=== PATIENT | male | born 1940 | race Caucasian/White ===

== ENCOUNTER → 2016-10-08 | Outpatient (CLI) | payer OTHER, MEDICARE ==
[~2016-10-08] MED LIST: ASCO10003 PO; ASPI81TA28 PO; B CO1CAP2 PO; CHOL100010 PO; CRD4 PO; DYZ PO; GLUC250C PO; MAGNTAB4 PO; METO-551 PO; MULT-164 PO; POTA-335 PO; SIMV20TA2 PO; WARF2.5T8 PO; WARF5TAB7 PO
[2016-10-08 12:49] LABS: BASO % 0.1 %; BASO ABS # 0.01 K/uL (0-0.2); COMPLETE YES; EOS % 0.3 %; HEMATOCRIT 39.8 % (42-52); IG% 0.3 %; LYMPH % 16.4 %; LYMPH ABS # 1.48 K/uL (1.2-3.4); MEAN CELL VOLUME 93.9 fL (80-100); MEAN CORPUSCULAR HGB CONC 35.2 g/dl (32-36); MEAN PLATELET VOLUME 11.5 fL (7.4-10.4); MONO % 8.1 %; NEUT % 74.8 %; PLATELET COUNT 178 K/uL (130-400); RED BLOOD COUNT 4.24 M/uL (4.7-6.1); WHITE BLOOD COUNT 9.05 K/uL (4.8-10.8)
[2016-10-08 13:00] LABS: URINE APPEARANCE CLEAR (CLEAR); URINE BILIRUBIN NEG (NEG); URINE COLOR YELLOW; URINE EPITHELIAL CELL AUTO 0-5 /lpf (0-5); URINE NITRITE NEG (NEG); UROBILINOGEN NEG (NEG); ZZUR CULT IF INDIC CLEAN CATCH NO
[2016-10-08 13:01] LABS: MANUAL MICROSCOPIC REQUIRED? NO; REVIEW REQ? NO
[2016-10-08 13:06] LABS: BLOOD UREA NITROGEN 15 mg/dl (7-18); BUN/CREATININE RATIO 13.7 (10-20); CALCIUM 9.2 mg/dl (8.5-10.1); CARBON DIOXIDE 28 mmol/L (21-32); CHLORIDE 103 mmol/L (98-107); CHOLESTEROL 107 mg/dl (0-200); GLUCOSE 111 mg/dl (70-99); POTASSIUM 3.7 mmol/L (3.5-5.1); SODIUM 140 mmol/L (136-145)
[2016-10-08 13:16] LABS: ALB/GLOB RATIO 1.2 (0.9-2); ALKALINE PHOSPHATASE 75 U/L (45-117); ALT/SGPT 32 U/L (12-78); AST/SGOT 28 U/L (15-37); CHOLESTEROL/HDL RATIO 2.3; HDL CHOLESTEROL 46 mg/dl; LDL CHOLESTEROL CALCULATED 40 mg/dl; TRIGLYCERIDES 106 mg/dl (0-150); VERY LOW DENSITY LIPOPROT CALC 21 mg/dl
[2016-10-08 13:32] LABS: ESTIMATED AVERAGE GLUCOSE 105 mg/dl; HA1C FLAG Normal (Normal)
== END | disposition home or self-care (01) ==
LOC: C.LABBFT 07:52
PROVIDERS: ATTEND Internal Medicine
DX: I48.91 Unspecified atrial fibrillation (principal); E78.00 Pure hypercholesterolemia, unspecified; N40.0 Benign prostatic hyperplasia without lower urinary tract symptoms; R73.01 Impaired fasting glucose

== ENCOUNTER → 2016-11-06 | Outpatient (CLI) | payer OTHER, MEDICARE ==
--- NOTE | 2016-11-06 13:33 | DIAGNOSTIC IMAGING REPORT ---
RIGHT WRIST MIN 3 VIEWS ROUTINE CLINICAL HISTORY: RIGHT WRIST PAIN Right trauma. Pain. COMPARISON: None. DISCUSSION: Generalized degenerative change. No well-defined acute bony abnormality. Minimal calcification triangular fibrocartilage. There is no evidence for soft tissue swelling. IMPRESSION: Generalized degenerative change. No acute process. Electronically signed by: Abdi Logan M.D. 11/06/2016 1:31 PM Dictated Date/Time: 11/06/2016 1:30 PM
== END | disposition home or self-care (01) ==
LOC: C.RDSM 13:10
PROVIDERS: ATTEND Family Medicine
DX: M25.531 Pain in right wrist (principal)

== ENCOUNTER → 2017-10-29 | Outpatient (CLI) | payer OTHER, MEDICARE ==
[2017-10-29 15:06] LABS: BASO % 0.4 %; BASO ABS # 0.03 K/uL (0-0.2); EOS % 2.1 %; EOS ABS # 0.14 K/uL (0-0.5); HEMATOCRIT 36.1 % (42-52); HEMOGLOBIN 12.2 g/dL (14.0-18.0); IG# 0.02 K/uL (0.00-0.02); LYMPH ABS # 1.15 K/uL (1.2-3.4); MEAN CORPUSCULAR HEMOGLOBIN 32.1 pg (25-34); MEAN CORPUSCULAR HGB CONC 33.8 g/dl (32-36); MEAN PLATELET VOLUME 10.9 fL (7.4-10.4); MONO ABS # 0.61 K/uL (0.11-0.59); NEUT % 71.2 %; NEUT ABS # 4.81 K/uL (1.4-6.5); PLATELET COUNT 181 K/uL (130-400); RED CELL DISTRIBUTION WIDTH CV 13.2 % (11.5-14.5); RED CELL DISTRIBUTION WIDTH SD 45.1 fL (36.4-46.3); WHITE BLOOD COUNT 6.76 K/uL (4.8-10.8)
[2017-10-29 15:24] LABS: ALBUMIN 3.9 gm/dl (3.4-5.0); ALT/SGPT 28 U/L (12-78); BLOOD UREA NITROGEN 16 mg/dl (7-18); CALCIUM 8.9 mg/dl (8.5-10.1); CARBON DIOXIDE 27 mmol/L (21-32); CHOLESTEROL 93 mg/dl (0-200); CREATININE 1.14 mg/dl (0.60-1.40); GLUCOSE 93 mg/dl (70-99); POTASSIUM 3.9 mmol/L (3.5-5.1); SODIUM 138 mmol/L (136-145)
[2017-10-29 15:27] LABS: ALKALINE PHOSPHATASE 74 U/L (45-117); AST/SGOT 26 U/L (15-37); LDL CHOLESTEROL CALCULATED 40 mg/dl; TOTAL PROTEIN 7.1 gm/dl (6.4-8.2)
[2017-10-29 15:29] LABS: CREATININE RANDOM URINE 40.4 mg/dl
[2017-10-30 05:42] LABS: HEMOGLOBIN A1C 5.5 % (4.5-5.6)
== END | disposition home or self-care (01) ==
LOC: C.LABBFT 07:56
PROVIDERS: ATTEND Internal Medicine
DX: R73.01 Impaired fasting glucose (principal); E78.00 Pure hypercholesterolemia, unspecified

== ENCOUNTER → 2017-11-29 | Outpatient (CLI) | payer OTHER, MEDICARE ==
[2017-11-29 12:53] LABS: BLOOD UREA NITROGEN 20 mg/dl (7-18); CALCIUM 8.8 mg/dl (8.5-10.1); CARBON DIOXIDE 27 mmol/L (21-32); CREATININE 1.18 mg/dl (0.60-1.40); GLUCOSE 90 mg/dl (70-99); POTASSIUM 3.6 mmol/L (3.5-5.1); SODIUM 140 mmol/L (136-145)
== END | disposition home or self-care (01) ==
LOC: C.LABBFT 07:50
PROVIDERS: ATTEND Internal Medicine
DX: I10 Essential (primary) hypertension (principal)

== ENCOUNTER 2018-08-25 09:08 | Observation (INO) ==
--- NOTE | 2018-08-18 16:26 | PAT Medication Instructions ---
Medication Instructions Date of Service August 18, 2018 Home Medications B-complex with vitamin C 1 tab PO QAM ascorbic acid (vitamin C) 1 tab PO QAM aspirin [Aspir-Low] 81 mg PO QAM glucosamine-chondroitin 1 cap PO QAM losartan 25 mg PO QAM magnesium chloride [Slow-Mag] 71.5 mg PO BID metoprolol tartrate 50 mg PO BID multivitamin 1 tab PO QAM potassium chloride 20 meq PO BID rivaroxaban [Xarelto] 20 mg PO PM simvastatin 40 mg PO HS tamsulosin 0.4 mg PO HS triamterene-hydrochlorothiazid 1 cap PO QAM cholecalciferol (vitamin D3) 2,000 unit PO QAM ASK your prescriber and surgeon aspirin [Aspir-Low] 81 mg PO QAM rivaroxaban [Xarelto] 20 mg PO PM STOP taking 2 weeks before surgery glucosamine-chondroitin 1 cap PO QAM DO NOT take the morning of surgery B-complex with vitamin C 1 tab PO QAM ascorbic acid (vitamin C) 1 tab PO QAM losartan 25 mg PO QAM magnesium chloride [Slow-Mag] 71.5 mg PO BID multivitamin 1 tab PO QAM potassium chloride 20 meq PO BID triamterene-hydrochlorothiazid 1 cap PO QAM cholecalciferol (vitamin D3) 2,000 unit PO QAM Take morning of surgery With a small sip of water, OTHERWISE NOTHING TO EAT OR DRINK AFTER MIDNIGHT: metoprolol tartrate 50 mg PO BID Take evening before surgery magnesium chloride [Slow-Mag] 71.5 mg PO BID metoprolol tartrate 50 mg PO BID potassium chloride 20 meq PO BID simvastatin 40 mg PO HS tamsulosin 0.4 mg PO HS Other Notes If you have any questions please call us at [phone] or [phone] or [phone] or [phone]
--- NOTE | 2018-08-19 10:30 | Anesthesiology Consultation ---
Date of Service August 19, 2018 Assessment & Plan (1) Encounter for pre-operative examination: Chart Review Chart Review: Acceptable Risk for Surgery and Patient seen in Pre Admission Testing Consults Requested none Teaching & Discussion Pre-Anesthesia Teaching/Discussion Notes: Instructed NPO after midnight before surgery, except medications with 15 cc of water. Medication instructions provided according to the PAT guidelines. History Surgery Operation Date: 08/25/18 09:50 Proposed Procedures p Open Right Inguinal Hernia Repair - Tam Denton MD, FACS Height/Weight Height: 5 ft 11 in Weight: 81.3 kg Allergies Allergy/AdvReac Type Severity Reaction Status Date / Time Penicillins Allergy Intermediate URTICARIA Verified 08/14/18 15:37 Medications Home Medications Medication Instructions Recorded Confirmed Last Taken B-complex with vitamin C [Super B 1 tab PO QAM 06/03/18 08/14/18 06/10/18 08:00 Complex-Vitamin C] ascorbic acid (vitamin C) [Vitamin 1 tab PO QAM 06/03/18 08/14/18 06/10/18 08:00 C] aspirin [Aspir-Low] 81 mg PO QAM 06/03/18 08/14/18 06/10/18 08:00 glucosamine-chondroitin 1 cap PO QAM 06/03/18 08/14/18 06/10/18 08:00 losartan 25 mg PO QAM 06/03/18 08/14/18 06/11/18 06:00 magnesium chloride [Slow-Mag] 71.5 mg PO BID 06/03/18 08/14/18 06/10/18 08:00 metoprolol tartrate 50 mg PO BID 06/03/18 08/14/18 06/11/18 06:00 multivitamin 1 tab PO QAM 06/03/18 08/14/18 06/10/18 08:00 potassium chloride 20 meq PO BID 06/03/18 08/14/18 06/10/18 21:00 rivaroxaban [Xarelto] 20 mg PO PM 06/03/18 08/14/18 06/07/18 21:00 simvastatin 40 mg PO HS 06/03/18 08/14/18 06/10/18 21:00 tamsulosin 0.4 mg PO HS 06/03/18 08/14/18 06/10/18 21:00 triamterene-hydrochlorothiazid 1 cap PO QAM 06/03/18 08/14/18 06/10/18 08:00 cholecalciferol (vitamin D3) 2,000 unit PO QAM 08/14/18 08/14/18 Unknown [Vitamin D3] Past Medical History Medical History Atrial fibrillation Cancer basal cell left synagogue Difficult intubation 04/28/14 - Grade 1 view, required glidescope 4.0. Atraumatic intubation. Enlarged prostate Hyperlipidemia Hypertension Transient ischemic attack (TIA) X 3 (OVER 10 YEARS AGO) Past Surgical History Surgical History History of adenoidectomy History of cataract surgery RT History of colonoscopy History of esophagogastroduodenoscopy (EGD) History of herniorrhaphy Inguinal hernia repairs - Left x 3, Right x 1 History of tonsillectomy History of tooth extraction Past Anesthesia History No Hx of Anesthesia Complications and No Family Hx of Anesthesia Complications History of PONV No Motion Sickness Screening History of Motion Sickness: No Social History Smoking Status: Former smoker Smoking cigarettes per day: Smoked 1 ppd x 19 years Smoking End Date: > 30 yrs Hx Alcohol Use: Yes alcohol intake frequency: holidays/special occasions only (1-2 drinks per year) Hx Substance Use: No substance use type: does not use Exercise / Class Metabolic Activity II 4-5 Yardwork/Stairs/Walk up hill (Goes to the gym 5 days per week (treadmill/ weights - not currently lifting weights due to hernia). Able to climb FOS. Denies CP or SOB. ) Review of Systems Patient denies chest pain, shortness of breath, dyspnea on exertion, joint pain , reflux, cough, wheezing, palpitations. Physical Exam Vital Signs BP: 161/78 (pt states it is always up around doctors and hospitals) P: 77 R: 16 T: 97.6 SPO2: 97% on RA ENMT Mouth: + dental restorations Thyromental Distance: < 3.5 Finger Breadths (3) Mallampati Class: II Neck normal visual inspection and trachea midline; neck extension not limited Respiratory normal respiratory effort Auscultation: lungs clear to auscultation bilaterally Cardiovascular Heart Sounds: no murmur Vessels: no carotid bruit Irregularly, Irregular rate/rhythm Neurologic moves all extremities Psychiatric Orientation: alert and oriented x 3 Testing Electrocardiogram Date: 08/19/18 Findings: + AFIB @ (72) Premature ventricular or aberrantly conducted complexes. When compared with ECG of 04/28/14, ventricular rate has decreased by 37bpm. Chest X-Ray Date: 08/19/18 Findings: + NAD FINDINGS: Cardiac silhouette mildly enlarged. Coarsened lung markings. Calcified granuloma may be present at the right lung base, unchanged. Lungs and pleural spaces otherwise clear. Degenerative changes of the thoracic spine. Upper abdomen normal. IMPRESSION: 1. No acute cardiopulmonary disease. Echocardiogram Date: 01/31/18 EF: 50-55% LV Function: normal (low normal) RWMA: + none Other Findings: + LVH (Mild concentric ) Valvular Disease: + MR (mild to moderate) Right ventricle is mild to moderately dilated. Left atrium is mildly dilated. Mild to moderate tricuspid regurgitation. Right ventricular systolic pressure is elevated at 50-60mmHg. Mildly dilated inferior vena cava. Other Testing Carotid Doppler U/S 10/13/13: IMPRESSION: Moderate atheromatous change. No evidence of hemodynamically significant carotid stenosis. Laboratory Results 08/19/18 11:30 08/19/18 11:30
--- NOTE | 2018-08-19 12:06 | XRay Report ---
XR chest Pre-admission PA/Lat CLINICAL HISTORY: 77 years-old Male presenting with preoperative assessment, history of atrial fibril lation. TECHNIQUE: PA and lateral views of the chest were obtained. COMPARISON: 04/23/2014. FINDINGS: Cardiac silhouette mildly enlarged. Coarsened lung markings. Calcified granuloma may be present at th e right lung base, unchanged. Lungs and pleural spaces otherwise clear. Degenerative changes of the t horacic spine. Upper abdomen normal. IMPRESSION: 1. No acute cardiopulmonary disease. Electronically signed by: Hao Roman M.D. 08/19/2018 12:05 PM
[2018-08-19 13:02] LABS: Basophils # (auto) 0.03 K/uL (0-0.2); Basophils % (auto) 0.4 %; Eosinophils # (auto) 0.08 K/uL (0-0.5); Eosinophils % (auto) 1.1 %; Hematocrit (blood only) 36.9 % (42-52); Hemoglobin 12.7 g/dL (14.0-18.0); Immature Granulocytes # (auto) 0.02 K/uL (0.00-0.02); Immature Granulocytes % (auto) 0.3 %; Lymphocytes # (auto) 1.44 K/uL (1.2-3.4); Lymphocytes % (auto) 19.5 %; Mean Corpuscular Hgb Conc 34.4 g/dL (32-36); Mean Corpuscular Volume 95.3 fL (80-100); Mean Platelet Volume 11.2 fL (7.4-10.4); Monocytes # (auto) 0.55 K/uL (0.11-0.59); Monocytes % (auto) 7.4 %; Neutrophils # (auto) 5.27 K/uL (1.4-6.5); Neutrophils % (auto) 71.3 %; Platelet Count 173 K/uL (130-400); RDW Coefficient of Variation 12.8 % (11.5-14.5); RDW Standard Deviation 43.6 fL (36.4-46.3); Red Blood Count 3.87 M/uL (4.7-6.1); White Blood Count 7.39 K/uL (4.8-10.8)
[2018-08-19 13:10] LABS: BUN Creatinine Ratio 19.3 (10-20); Calcium 8.8 mg/dl (8.5-10.1); Creatinine Clr Calc Pharmacy 57.1 ml/min; Est GFR (African American) 68.8; Est GFR (Non-African American) 59.4; Potassium 3.8 mmol/L (3.5-5.1)
[~2018-08-25 09:08] MED LIST changes: -ASCO10003 PO; -ASPI81TA28 PO; -B CO1CAP2 PO; -CHOL100010 PO; +CLINDAMYCIN 900 MG / 50ML D5W IV SCH; -CRD4 PO; -DYZ PO; -GLUC250C PO; +LR 15ML/HR IV SCH; -MAGNTAB4 PO; -METO-551 PO; -MULT-164 PO; -POTA-335 PO; -SIMV20TA2 PO; -WARF2.5T8 PO; -WARF5TAB7 PO
[2018-08-25] MEDS ORDERED: fentaNYL citrate 100 MCG/2 ML VIAL ONE (09:34)
[2018-08-25] MEDS ORDERED: ONDANSETRON INJ 2 MG/ML 2 ML VIAL ONE (09:34)
[2018-08-25] MEDS ORDERED: ROCURONIUM BROMIDE 10 MG/ML 5 ML VIAL ONE (09:34)
[2018-08-25] MEDS ORDERED: LIDOCAINE HCL 2% 2 ML VIAL/AMP(20MG/ML) INFIL ONE (09:34)
[2018-08-25] MEDS ORDERED: PROPOFOL IV EMULSION 10 MG/ML 20 ML VIAL IV ONE (09:34)
[2018-08-25] MEDS ORDERED: MIDAZOLAM HCL 1 MG/ML 2ML VIAL ONE (09:35)
[2018-08-25] MEDS ORDERED: GLYCOPYRROLATE 0.2 MG/ML VIAL ONE (09:42)
[2018-08-25] MEDS ORDERED: ePHEDrine sulfate 50 MG/ML AMP ONE (09:42)
[2018-08-25] MEDS ORDERED: NEOSTIGMINE METHYLSULFATE 5 MG/5 ML SYR ONE (09:42)
--- NOTE | 2018-08-25 10:14 | History & Physical Bridge Note ---
Date of Service August 25, 2018 History & Physical Bridge Note I have examined the patient, reviewed the History & Physical and in the interval since the performance of the History & Physical I have noted the following changes of clinical significance: no changes noted
[2018-08-25] MEDS ORDERED: LIDOCAINE HCL 1% 20 ML VIAL ONE (10:17)
[2018-08-25] MEDS ORDERED: BUPIVACAINE 0.5 % 5 MG/1 ML MPF 30ML VIAL ONE (10:17)
[2018-08-25] MEDS ORDERED: CEFAZOLIN 250 MG/ML 1 GM VIAL ONE (10:17)
[2018-08-25] MEDS ORDERED: LABETALOL HCL IV 5 MG/ML 20ML IV PRN (10:33)
[2018-08-25] MEDS ORDERED: FLUMAZENIL 0.1 MG/1 ML 10 ML VIAL IV PRN (10:33)
[2018-08-25] MEDS ORDERED: ONDANSETRON INJ 2 MG/ML 2 ML VIAL IV PRN ×2 (10:33→12:53)
[2018-08-25] MEDS ORDERED: ePHEDrine sulfate 50 MG/ML AMP IV PRN (10:33)
[2018-08-25] MEDS ORDERED: HYDROmorphone INJ 1 MG/ML SYRINGE IV PRN (10:33)
[2018-08-25] MEDS ORDERED: PROMETHAZINE HCL 12.5 MG in SODIUM CHLORIDE 0.9% 50 ML IV PRN ×2 (10:33→12:53)
[2018-08-25] MEDS ORDERED: NALOXONE HCL 0.4 MG/1 ML VIAL/CARP IV PRN (10:33)
[2018-08-25] MEDS ORDERED: ATROPINE SULFATE 0.1 MG/ML 10ML SYR IV PRN (10:33)
[2018-08-25] MEDS ORDERED: ACETAMINOPHEN 1,000 MG/100 ML VIAL IV ONE (11:32)
--- NOTE | 2018-08-25 11:32 | Operative Report ---
Post Operative Report Pre & Post Diagnosis Operation Date: 08/25/18 11:00 Pre-Op Diagnosis: Recurrent Right Inguinal Hernia Post-Op Diagnosis: Recurrent Right Inguinal Hernia same with indirect defect Procedure Operation Date: 08/25/18 11:00 Actual Procedures p Right Open Inguinal Hernia Repair with Mesh(Right) - Tam Denton MD, FACS same , recurrent repair Surgeon Tam Denton MD, FACS Senior Php Developer Hailey Noriega Estimated Blood Loss 10 Findings Consistent with Post-Op Diagnosis Specimens none Description of Procedure see dictated note I attest to the content of the Intraoperative Record and any orders documented therein. Any exceptions are noted below.
--- NOTE | 2018-08-25 12:21 | Anesthesiology Progress Note ---
Date of Service August 25, 2018 Anesthesia Post Procedure Vital Signs Vital Signs: Temp Pulse Pulse Resp BP BP Pulse Ox 08/25/18 12:10 75 18 157/93 H 98 08/25/18 12:00 68 18 155/73 H 98 08/25/18 11:50 74 18 147/75 H 100 08/25/18 11:42 37.0 C 84 18 165/95 H 100 08/25/18 09:47 37 C 64 18 185/95 H 98 Pain Intensity Right Abdomen: Pain Intensity: 1 Notes Mental Status: alert / awake / arousable Patient Amnestic to Procedure: Yes Nausea / Vomiting: adequately controlled Pain: adequately controlled Airway Patency, RR, SpO2: stable & adequate BP & HR: stable & adequate Hydration State: stable & adequate Anesthetic Complications: no major complications apparent
[2018-08-25] MEDS ORDERED: HYDROCODONE/ACETAMOPHEN 5/325MG TAB PO PRN (12:53)
[2018-08-25] MEDS ORDERED: MoRPHine SULFATE 4 MG/ML 1 ML CARP\\VIAL IV PRN ×2 (12:53)
--- NOTE | 2018-08-25 14:10 | Operative Report ---
DATE OF OPERATION: 08/25/2018 NAME OF OPERATION: Recurrent right inguinal hernia repair with mesh. PREOPERATIVE DIAGNOSIS: Recurrent right inguinal hernia. POSTOPERATIVE DIAGNOSES: Recurrent right inguinal hernia with indirect defect. STAFF SURGEON: Tam Denton MD DISK RECORDIST: Tim Noriega PA-C ANESTHESIA: General. DESCRIPTION OF PROCEDURE: The patient was brought in the operating room and placed on the operating table in supine position. His lower abdomen was prepped and draped in usual fashion. 0.5% plain Marcaine was used to anesthetize the skin and subcutaneous tissue and then deep tissue at the end of the case. Incision was made through the previous scar, carrying dissection down through scar tissue, identifying the external oblique fibers. Fibers were opened laterally and mobilized down identifying the cord structures. With some difficulty, these were mobilized. I did ligate some small vessels using 2-0 chromic suture. The patient did have an indirect hernia sac which was dissected away from the cord structures, then reduced. Mesh plug placed into the defect, secured to the surrounding tissue using 2-0 Ethibond suture, then a large mesh patch placed into the floor of the canal around the cord structures, secured to surrounding tissue using 2-0 Ethibond suture. The external oblique fibers were then closed over the mesh around the cord structures using 2-0 Ethibond suture. The site was irrigated with antibiotic solution and anesthetized using 0.5% plain Marcaine. Subcutaneous tissues were reapproximated using 2-0 plain suture and then the skin reapproximated using 4-0 nylon suture. Dressing applied. My hair or beauty salon assistant, David Noriega helped with prepping, draping, repair of the hernia and closure of the wound. I attest to the content of the Intraoperative Record and any orders documented therein. Any exception s are noted below.
[2018-08-25] MEDS ORDERED: LOSARTAN POTASSIUM 25 MG TAB PO ONE (16:03)
[2018-08-25] MEDS: CEFAZOLIN 1000MG 1,000 MG/7.5 ML SYR IV SCH (19:32)
[2018-08-25] MEDS: POTASSIUM CHLORIDE 20 MEQ TABCR PO SCH (20:09)
[2018-08-25] MEDS: METOPROLOL TARTRATE 50 MG TAB PO SCH (20:10)
[2018-08-25] MEDS: MAGNESIUM CHLORIDE 64MG DELAYED REL TAB PO SCH (20:10)
[2018-08-25] MEDS: DOCUSATE SODIUM/SENNA 50/8.6MG TAB PO SCH (20:17)
[2018-08-25] MEDS ORDERED: SIMVASTATIN 40 MG TAB PO SCH (21:00)
[2018-08-25] MEDS: HYDROCODONE/ACETAMOPHEN 5/325MG TAB PO PRN (23:34)
[2018-08-26] MEDS: CEFAZOLIN 1000MG 1,000 MG/7.5 ML SYR IV SCH (03:26)
[2018-08-26] MEDS: HYDROCODONE/ACETAMOPHEN 5/325MG TAB PO PRN (03:32)
--- NOTE | 2018-08-26 06:00 | Internal Medicine Consult Note ---
Date of Consultation August 25, 2018 Assessment & Plan (1) Hypertension: B/P is elevated, Patient did not take morning Michele inhibitor. Will give morning dose now in the afternoon. Patient lsoo states that his bp NORMALLY RUNS HIGHER in the hospital. Will hold off IV PRN meds for now as BP will likely improve once regular meds get into systme. (2) Paroxysmal A-fib: Patient is on beta chilo and xarelto at home. Resumed BB here. Xarelto has been held. Will likely restart day after surgery. Will defer to primary team. Rate is controlled (3) H/O stroke without residual deficits: Patient is on statin and BB as well as Aspirin. Patient does not have residual effects. Patient states he has radiological changes in his CT scan which is why I would call this a stroke instead of a TIA. This appears to have been remote as it is over 10 years ago and patient remains very active at the gym. History of Present Illness Attending Physician: Tam Denton MD, FACS History of Present Illness Patient is a 77 yo male who is hospitalized for a right inguinal hernai repair. Consult was called for medical management as patient has multiple medical comorbidities sich as A. fib, hypertension, and history of strokes. Patient states that he is very active and exercises about 5 days a week at the [facility] in [place]. Patient currenlty denies any complaints as he just had surgery ealier today. He states he has mild pain at his incision site. Patient denies any nausea, vomtiing, diarrhea, aphasia, weakness, SOB upon exertion. ROS will be noted below. Allergies Allergy/AdvReac Type Severity Reaction Status Date / Time Penicillins Allergy Intermediate URTICARIA Verified 08/25/18 09:41 Home Medications Home Medications Medication Instructions Recorded Confirmed Type B-complex with vitamin C [Super B 1 tab PO QAM 06/03/18 08/25/18 History Complex-Vitamin C] ascorbic acid (vitamin C) [Vitamin 1 tab PO QAM 06/03/18 08/25/18 History C] aspirin [Aspir-Low] 81 mg PO QAM 06/03/18 08/25/18 History glucosamine-chondroitin 1 cap PO QAM 06/03/18 08/25/18 History losartan 25 mg PO QAM 06/03/18 08/25/18 History magnesium chloride [Slow-Mag] 71.5 mg PO BID 06/03/18 08/25/18 History metoprolol tartrate 50 mg PO BID 06/03/18 08/25/18 History multivitamin 1 tab PO QAM 06/03/18 08/25/18 History potassium chloride 20 meq PO BID 06/03/18 08/25/18 History rivaroxaban [Xarelto] 20 mg PO PM 06/03/18 08/25/18 History simvastatin 40 mg PO HS 06/03/18 08/25/18 History tamsulosin 0.4 mg PO HS 06/03/18 08/25/18 History triamterene-hydrochlorothiazid 1 cap PO QAM 06/03/18 08/25/18 History cholecalciferol (vitamin D3) 2,000 unit PO QAM 08/14/18 08/25/18 History [Vitamin D3] hydrocodone-acetaminophen [[place]] 1 - 2 tab PO Q6H #30 tab 08/25/18 Rx Patient History Medical History Atrial fibrillation Cancer basal cell left gnosticism Enlarged prostate Hyperlipidemia Hypertension Transient ischemic attack (TIA) X 3 (OVER 10 YEARS AGO) Social History Current Living Situation: Alone Other Information That Helps Us Care for You: No Feels Safe at Home: Yes Safety Concerns: Feels Safe At This Time Smoking Status: Former smoker Cigarettes per Day: Smoked 1 ppd x 19 years Smoking End Date: > 30 yrs Hx Alcohol Use: Yes Alcohol Intake Frequency: holidays/special occasions only ( 1-2 drinks per year) Hx Substance Use: No Beliefs That Will Affect Care: None Preferred Language: Spanish Communication Ability: Effective Review of Systems Constitutional: no sweats and no malaise Eyes: no diplopia Ear, Nose, Mouth, Throat: no dizziness Respiratory: no change in sputum Cardiovascular: no chest pain Gastrointestinal: as per Subjective / HPI; no bloating and no nausea Musculoskeletal: no radicular pain and no deformity Integumentary: no acne and no lesions Neurologic: no loss of sensation Psychiatric: no hopelessness and no change in appetite Physical Exam 2 Vital Signs (Past 24 Hours): Last Vital Signs Temp 36.3 C L 08/26/18 03:10 Pulse 82 01/29/19 03:10 Resp 18 08/26/18 03:10 BP 163/82 H 08/26/18 03:10 Pulse Ox 95 08/26/18 03:10 Constitutional: WD/WN, vitals as above well developed, well nourished and average body habitus Eyes: PERRL, conjunctivae normal, anicteric sclerae ENMT: external ear and nose normal, oropharynx normal Neck: trachea midline, no thyromegaly Respiratory: normal respiratory effort, lungs clear to auscultation Cardiovascular: RRR, no murmur, no edema Gastrointestinal (Abdomen): normal bowel sounds, soft, nontender, no hepatosplenomegaly Neurologic: PERRL, EOMI, accommodation nl, no face palsy, no dysarthria Psychiatric: A+Ox3, euthymic affect
--- NOTE | 2018-08-26 08:09 | Anesthesiology Progress Note ---
Date of Service August 26, 2018 Anesthesia Post Procedure Vital Signs Vital Signs: Temp Pulse Pulse Pulse Pulse Pulse Resp 08/26/18 07:26 36.3 C L 78 80 94 H 82 18 08/26/18 03:10 36.3 C L 82 18 08/25/18 23:40 36.4 C L 94 H 18 08/25/18 20:06 80 08/25/18 18:55 36.5 C 75 16 08/25/18 16:06 36.5 C 78 18 08/25/18 15:55 84 08/25/18 13:45 79 16 08/25/18 13:19 83 16 08/25/18 12:45 36.7 C 84 18 08/25/18 12:20 36.8 C 75 18 08/25/18 12:10 75 18 08/25/18 12:00 68 18 08/25/18 11:50 74 18 08/25/18 11:42 37.0 C 84 18 08/25/18 09:47 37 C 64 18 BP BP Pulse Ox 08/26/18 07:26 175/103 H 163/82 H 95 08/26/18 03:10 163/82 H 95 08/25/18 23:40 175/103 H 94 08/25/18 20:06 115/74 08/25/18 18:55 185/95 H 95 08/25/18 16:06 180/94 H 92 08/25/18 15:55 195/101 H 08/25/18 13:45 160/89 H 98 08/25/18 13:19 186/74 H 98 08/25/18 12:45 162/78 H 95 08/25/18 12:20 158/88 H 98 08/25/18 12:10 157/93 H 98 08/25/18 12:00 155/73 H 98 08/25/18 11:50 147/75 H 100 08/25/18 11:42 165/95 H 100 08/25/18 09:47 185/95 H 98 Pain Intensity Right Abdomen: Pain Intensity: 3 Notes Mental Status: alert / awake / arousable and participated in evaluation Nausea / Vomiting: adequately controlled Pain: adequately controlled Airway Patency, RR, SpO2: stable & adequate BP & HR: stable & adequate Hydration State: stable & adequate Anesthetic Complications: Pt Satisfied with anesthetic care
[2018-08-26] MEDS ORDERED: TRIAMTERENE/HCTZ 37.5/25MG CAP PO SCH (09:00)
[2018-08-26] MEDS ORDERED: LOSARTAN POTASSIUM 25 MG TAB PO SCH (09:00)
[2018-08-26] MEDS: DOCUSATE SODIUM/SENNA 50/8.6MG TAB PO SCH (09:00)
[2018-08-26] MEDS: METOPROLOL TARTRATE 50 MG TAB PO SCH (09:01)
[2018-08-26] MEDS: MAGNESIUM CHLORIDE 64MG DELAYED REL TAB PO SCH (09:01)
[2018-08-26] MEDS: POTASSIUM CHLORIDE 20 MEQ TABCR PO SCH (09:01)
--- NOTE | 2018-08-26 10:51 | Discharge Summary ---
PRINCIPAL DIAGNOSIS: Recurrent right inguinal hernia. PROCEDURES: The patient underwent open recurrent right inguinal hernia repair. HOSPITAL COURSE: The patient was brought into the hospital on 08/25/2018 for elective repair of a recurrent right inguinal hernia. He was taken to the operating room where he underwent a repair of the hernia with mesh placement. It was mildly difficult because of a redo. He has done quite well and is felt stable for discharge home today to be followed in the surgical clinic next week.
== END 2018-08-26 09:40 | disposition home or self-care (01) ==
LOC: ASU 09:08 → 3W 09:08

== ENCOUNTER 2024-10-11 03:04 | Inpatient (IN) ==
--- NOTE | 2024-10-11 03:18 | Emergency Department Note ---
Impression & Plan Pancytopenia, Anemia, Neutropenia, Fever, Hypomagnesemia, Thrombocytopenia ED Provider Note NAME: VICTORINO LUTHER AGE: 84 SEX: M : 1940 ARRIVES VIA: Ambulance INFORMANT: Patient ED PROVIDER(S): Luis Armando Garvey MD CHIEF COMPLAINT: Cough, fever PLAN: Disposition: Admit MEDICAL DECISION MAKING: The patient is a pleasant 84-year-old gentleman with a past medical history of prior cardiomyopathy now resolved, permanent atrial fibrillation on Xarelto, hypertension, hyperlipidemia, anemia who presents to the emergency department via EMS for evaluation of cough, congestion, body aches and fevers over the past several days which she felt become worse tonight. He reports having episode of dry heaving but denies actual emesis. Denies any diarrhea. Denies any urinary symptoms. On evaluation patient is no distress, afebrile with stable vital signs. Appears clinically dry. Mild pallor. Exhibits boggy nasal turbinates. Lungs with scant wheezes of lower lung sheikh and otherwise clear with normal respiratory effort. EKG without overt acute ischemia. CXR negative for acute cardiopulmonary process per my personal preliminary review/interpretation. CBC demonstrates pancytopenia. WBC 0.32 with severe neutropenia with ANC of <0.5. H/H 6.9/19.4 with MCV of 109. Platelets 31K. All newly decreased compared to May 2024. I did review CBC results with the lab and differential will not be reported due to severe pancytopenia. However no blast cells visualized under microscope. Chemistry without metabolic acidosis. Creatinine 1.75, similar to prior range values in the setting of CKD. Magnesium 1.6 with IV repletion provided. Iron is within normal limits at 85. High-sensitivity troponin 21.5, nonspecific. Lipase is not elevated. Procalcitonin is mildly elevated at 0.55. UA without evidence of infection. Respiratory BioFire was negative. Given the patient's fevers and neutropenia with elevated procalcitonin empiric antibiotic treatment initiated with IV cefepime and vancomycin. Patient was consented for blood transfusion and 1 unit of PRBCs was ordered. Patient agrees to plan for admission for further management. Case was discussed with Dr. Alvarado, [facility] hospitalist, who will evaluate the patient for admission. Further management per admitting team. Triage Nursing notes reviewed and agree them. Prior/external medical records reviewed Vital Signs: reviewed Differential diagnosis: Viral syndrome, otitis, pharyngitis, pneumonia, influenza, meningitis, urinary tract infection, sepsis, bacteremia, as well as other pathologies. ER treatment provided: See below. Diagnostics interpreted by me: ECG: Atrial fibrillation, 82 bpm, PVCs, no overt ST elevation or depression, QTc 432, QRS 80. Cardiac Monitoring: An order for continuous cardiac monitoring was placed and demonstrated atrial fibrillation, 82 bpm, PVCs. Laboratory studies: See below Imaging studies: See below Consultation(s): Case was discussed with Dr. Alvarado, [facility] hospitalist, who will evaluate the patient for admission. HPI: The patient is a pleasant 84-year-old gentleman with a past medical history of prior cardiomyopathy now resolved, permanent atrial fibrillation on Xarelto, hypertension, hyperlipidemia, anemia who presents to the emergency department via EMS for evaluation of cough, congestion, body aches and fevers over the past several days which she felt become worse tonight. He reports having episode of dry heaving but denies actual emesis. Denies any diarrhea. Denies any urinary symptoms. ROS: See above HPI for pertinent positives & negatives. A total of 10 systems reviewed and were otherwise negative. VITALS:See Below PHYSICAL EXAMINATION: GENERAL: Awake, alert, fatigued-appearing, in no distress HENT: Normocephalic, atraumatic. Oropharynx with dry mucous membranes and otherwise unremarkable. EYES: Normal conjunctiva. Sclera non-icteric. NECK: Supple. No nuchal rigidity. FROM. No JVD. RESPIRATORY:Scant wheezes of bilateral lower lung sheikh and otherwise clear with normal respiratory effort. Clear to auscultation. CARDIAC: Regular rate, normal rhythm. Extremities warm and well perfused. Pulses equal. ABDOMEN: Soft, non-distended. No tenderness to palpation. No rebound or guarding. No masses. MUSCULOSKELETAL: Chest examination reveals no tenderness. The back is symmetrical on inspection without obvious abnormality. There is no CVA tenderness to palpation. No joint edema. LOWER EXTREMITIES: Calves are equal size bilaterally and non-tender. No edema. No discoloration. NEURO: Normal sensorium. No sensory or motor deficits noted. SKIN: Mild pallor. No rash or jaundice noted. ED COURSE: Critical Care: I have personally spent greater than 35 minutes of critical care time in the direct management of this patient. This includes bedside care, interpretation of diagnostic studies, and testing, discussion with consultants, patient, and family members, and other required patient management activities. This 35 minutes is in excess of all separately billable procedures. Luis Armando Garvey MD Past Med/Surg History Problem List (Updated 10/11/24 @ 06:26 by Luis Armando Garvey MD) Thrombocytopenia (Acute) Hypomagnesemia (Acute) Fever (Acute) Neutropenia (Acute) Anemia (Acute) Pancytopenia (Acute) Pulmonary nodule Renal insufficiency (HFpEF) heart failure with preserved ejection fraction Elevated troponin Hypomagnesemia Neutropenia Pancytopenia Hyponatremia (Acute) Bilateral edema of lower extremity (Acute) Acute on chronic systolic heart failure Tricuspid regurgitation Mitral regurgitation Colon cancer screening Hypertension H/O stroke without residual deficits Varicocele (Acute) Proteinuria (Acute) Inhibited sexual excitement (Acute) Impaired fasting glucose (Acute) Carotid artery plaque (Acute) Anemia (Acute) BPH loc w urin obs/LUTS Hematoma of lower leg Dyspnea on exertion Permanent atrial fibrillation Systolic congestive heart failure with reduced left ventricular function, NYHA class 2 History of colon polyps Chronic kidney disease, stage 3 Medical History HTN (hypertension) med controls Enlarged prostate Cancer basal cell left cheondoism Transient ischemic attack (TIA) X 3 (OVER 10 YEARS AGO) Atrial fibrillation dx a long time ago/ no hx cardioversion Hyperlipidemia hx Surgical History Difficult intubation 04/28/14 - Grade 1 view, required glidescope 4.0. Atraumatic intubation. History of esophagogastroduodenoscopy (EGD) History of colonoscopy History of herniorrhaphy Inguinal hernia repairs - Left x 3, Right x 2 History of tooth extraction History of tonsillectomy History of adenoidectomy History of cataract surgery RT Family History Father Myocardial infarction Hypertension Coronary heart disease Mother Heart disease Breast cancer Other No significant family history Denies family history of Ovarian cancer Prostate cancer Colorectal cancer Social History Smoking Status: Former smoker Tobacco Type: Cigarettes Age Started Using Tobacco: 21; Age Quit Using Tobacco: 40; packs per day: 1; Cigarettes Per Day: 20; Second Hand Exposure: No; Do You Dip or Chew Tobacco: No; Hx Alcohol Use: Yes Alcohol type: beer Alcohol Intake Frequency Comment: 1-2 drinks yearly Hx Substance Use: No Preferred Language: Telugu Communication Ability: Effective Visual Impairment: No Limitations Hearing Ability: Normal Musculoskeletal Physician Required: No Beliefs That Will Affect Care: None marital status: single Current Living Situation: Alone current occupational status: retired current occupation: [employer] Feels Safe at Home: Yes Childhood Exposure to Second-Hand Smoke: Yes Diet: regular caffeine: No during the past year weight has: remained stable Dental Care, Regularly: Yes Physical Activity Frequency: 3-4 Times per Week Seatbelt Use: always Sunscreen Use: Yes Assistive Devices: None Allergies Allergies Allergy/AdvReac Type Severity Reaction Status Date / Time Penicillins Allergy Intermediate "i just Verified 09/08/24 09:38 didn't feel right" years ago Home Meds Home Medications Medication Instructions Recorded Confirmed B-complex with vitamin C (Super B 1 tab PO QAM 06/03/18 10/11/24 Complex-Vitamin C tablet) ascorbic acid (vitamin C) 1,000 mg 1 tab PO QAM 06/03/18 10/11/24 tablet (Vitamin C) glucosamine-chondroitin 167 mg-133 1 cap PO QAM 06/03/18 10/11/24 mg capsule magnesium chloride 71.5 mg 71.5 mg PO BID 06/03/18 10/11/24 (magnesium chloride) tablet,delayed release (Slow-Mag) multivitamin 1 tab PO QAM 06/03/18 10/11/24 cholecalciferol (vitamin D3) 50 2,000 unit PO QAM 08/14/18 10/11/24 mcg (2,000 unit) tablet (Vitamin D3) aspirin 81 mg tablet,delayed 81 mg PO WK 10/09/22 10/11/24 release (Aspir-Low) Previous Rx's Medication Instructions Recorded atorvastatin 20 mg tablet 20 mg PO QPM #90 tabs 12/17/23 sacubitril 97 mg-valsartan 103 mg 1 tab PO BID 90 days #180 tabs 01/08/24 tablet (Entresto) potassium chloride 20 mEq 20 meq PO BID #180 tabs 03/10/24 tablet,extended release rivaroxaban 20 mg tablet (Xarelto) 20 mg PO QPM #90 tabs 03/10/24 tamsulosin 0.4 mg capsule 0.4 mg PO HS #90 caps 03/10/24 furosemide 40 mg tablet 40 mg PO 4XWK #48 tabs 03/26/24 triamterene 37.5 1 cap PO 3XWK #90 caps 03/26/24 mg-hydrochlorothiazide 25 mg capsule carvedilol 6.25 mg tablet 6.25 mg PO BID #180 tabs 08/26/24 Results & Data (ED) Vital Signs Vital Signs - 24 hr 10/11/24 03:07 10/11/24 03:23 10/11/24 03:24 Temperature 37.7 C H Temperature Source Oral Pulse Rate 96 H 84 Pulse Rate [Apical] Respiratory Rate 22 Respiratory Effort / Characteristics Non-Labored Spontaneous Respiratory Depth Normal Respiratory Pattern Regular Blood Pressure 139/67 Blood Pressure [Right Arm] Blood Pressure Mean 91 Blood Pressure Mean [Right Arm] Blood Pressure Position Semi-fowlers Blood Pressure Position [Right Arm] Pulse Oximetry 95 93 Oxygen Delivery Method Room Air Room Air Sepsis Recent Fever Within 48 Hours Yes Sepsis New/Unexplained Change in Mental Status No Sepsis Action Taken by Nursing No Action Required 10/11/24 04:00 10/11/24 06:00 10/11/24 06:18 Temperature 36.9 C 36.8 C Temperature Source Oral Oral Pulse Rate 83 Pulse Rate [Apical] 89 92 H Respiratory Rate 24 16 22 Respiratory Effort / Characteristics Respiratory Depth Respiratory Pattern Blood Pressure 115/56 L Blood Pressure [Right Arm] 139/67 124/70 Blood Pressure Mean 75 Blood Pressure Mean [Right Arm] 91 88 Blood Pressure Position Semi-fowlers Blood Pressure Position [Right Arm] Semi-fowlers Semi-fowlers Pulse Oximetry 94 97 96 Oxygen Delivery Method Room Air Room Air Sepsis Recent Fever Within 48 Hours Sepsis New/Unexplained Change in Mental Status Sepsis Action Taken by Nursing Laboratory Data Attestation: I reviewed the patient's lab results. 10/11/24 05:25 10/11/24 03:11 Lab Results 10/11/24 10/11/24 10/11/24 Range/Units 03:11 03:12 03:14 WBC 0.32 L* (4.8-10.8) K/ul RBC 1.78 L (4.70-6.10) M/uL Hgb 6.9 L* (14.0-18.0) g/dl Hct 19.4 L* (42.0-52.0) % MCV 109.0 H (80.0-100.0) fL MCH 38.8 H (25.0-34.0) pg MCHC 35.6 (32.0-36.0) g/dL RDW Std Deviation 61.2 H (36.4-46.3) fL RDW Coeff of Colette 15.8 H (11.5-14.5) % Plt Count 31 L (130-400) K/uL MPV 11.4 (9.4-12.4) fL Reticulocyte % (Auto) 1.79 (0.50-2.00) % Neut # (Auto) < 0.50 L* (1.40-6.50) K/uL Reticulocyte # 0.030 (0.020-0.100) 10^6/uL Platelet Estimate Decreased L (Normal) RBC Morphology PT 18.2 H (9.0-12.0) Seconds INR 1.8 H (0.9-1.1) Sodium 130 L (136-145) mmol/L Potassium 4.1 (3.5-5.1) mmol/L Chloride 97 L (98-107) mmol/L Carbon Dioxide 25 (21-32) mmol/L Anion Gap 8 (3-11) BUN 38 H (6-23) mg/dl Creatinine 1.75 H (0.6-1.4) mg/dl Est Cr Clr Drug Dosing 34.1 ml/min eGFR 38.39 BUN/Creatinine Ratio 21.7 H (10-20) Glucose 157 H (70-99(Fasting)) mg/dl Lactate (0.4-2.0) mmol/L Calcium 8.7 (8.6-10.3) mg/dl Magnesium 1.6 L (1.7-2.4) mg/dl Iron 82 (35-175) mcg/dl Unsaturated IBC 160 (155-355) mcg/dl Transferrin 182 L (200-360) mg/dl Ferritin 406.7 H (8-388) ng/ml Total Bilirubin 2.6 H (0.2-1.0) mg/dl AST 23 (13-39) U/L ALT 13 (7-52) U/L Alkaline Phosphatase 55 (34-104) U/L Troponin I High Sens 21.5 H (0-20) pg/ml Total Protein 6.8 (6.0-8.3) gm/dl Albumin 4.1 (3.4-5.0) gm/dl Globulin 2.7 (2.5-4.0) gm/dl Albumin/Globulin Ratio 1.5 (0.9-2) Lipase 18 (11-82) U/L Vitamin B12 669 (180-914) pg/ml Folate > 22.30 (>5.38) ng/ml Procalcitonin 0.55 H (0-0.5) ng/ml Urine Color Urine Appearance (Clear) Urine pH (4.5-7.5) Ur Specific [place] (1.000-1.030) Urine Protein (Negative) Urine Glucose (UA) (Negative) Urine Ketones (Negative) Urine Blood (Negative) Urine Nitrite (Negative) Urine Bilirubin (Negative) Urine Urobilinogen (Negative) Ur Leukocyte Esterase (Negative) Adenovirus (PCR) Not Detected (NotDetected) Anaplasma Smear Babesia Smear B. pertussis DNA (PCR) Not Detected (NotDetected) B.parapertussis DNA PCR Not Detected (NotDetected) Lyme Disease Screen Negative (Negative) C. pneumoniae DNA (PCR) Not Detected (NotDetected) Coronavirus OC43 (PCR) Not Detected (NotDetected) Coronavirus HKU1 (PCR) Not Detected (NotDetected) Coronavirus 229E (PCR) Not Detected (NotDetected) SARS-CoV-2 (PCR) Not Detected (NotDetected) Coronavirus NL63 (PCR) Not Detected (NotDetected) Monoscreen Negative (Negative) Human Metapneumovir PCR Not Detected (NotDetected) Influenza Type A (PCR) Not Detected (NotDetected) Influenza Type B (PCR) Not Detected (NotDetected) M. pneumoniae (PCR) Not Detected (NotDetected) Parainfluenza 1 (PCR) Not Detected (NotDetected) Parainfluenza 2 (PCR) Not Detected (NotDetected) Parainfluenza 3 (PCR) Not Detected (NotDetected) Parainfluenza 4 (PCR) Not Detected (NotDetected) RSV (PCR) Not Detected (NotDetected) Entero/Rhino (PCR) Not Detected (NotDetected) Blood Type Blood Type Recheck Antibody Screen Crossmatch 10/11/24 10/11/24 10/11/24 Range/Units 04:22 04:25 04:51 WBC (4.8-10.8) K/ul RBC (4.70-6.10) M/uL Hgb (14.0-18.0) g/dl Hct (42.0-52.0) % MCV (80.0-100.0) fL MCH (25.0-34.0) pg MCHC (32.0-36.0) g/dL RDW Std Deviation (36.4-46.3) fL RDW Coeff of Colette (11.5-14.5) % Plt Count (130-400) K/uL MPV (9.4-12.4) fL Reticulocyte % (Auto) (0.50-2.00) % Neut # (Auto) (1.40-6.50) K/uL Reticulocyte # (0.020-0.100) 10^6/uL Platelet Estimate (Normal) RBC Morphology PT (9.0-12.0) Seconds INR (0.9-1.1) Sodium (136-145) mmol/L Potassium (3.5-5.1) mmol/L Chloride (98-107) mmol/L Carbon Dioxide (21-32) mmol/L Anion Gap (3-11) BUN (6-23) mg/dl Creatinine (0.6-1.4) mg/dl Est Cr Clr Drug Dosing ml/min eGFR BUN/Creatinine Ratio (10-20) Glucose (70-99(Fasting)) mg/dl Lactate 1.4 (0.4-2.0) mmol/L Calcium (8.6-10.3) mg/dl Magnesium (1.7-2.4) mg/dl Iron (35-175) mcg/dl Unsaturated IBC (155-355) mcg/dl Transferrin (200-360) mg/dl Ferritin (8-388) ng/ml Total Bilirubin (0.2-1.0) mg/dl AST (13-39) U/L ALT (7-52) U/L Alkaline Phosphatase (34-104) U/L Troponin I High Sens 23.9 H (0-20) pg/ml Total Protein (6.0-8.3) gm/dl Albumin (3.4-5.0) gm/dl Globulin (2.5-4.0) gm/dl Albumin/Globulin Ratio (0.9-2) Lipase (11-82) U/L Vitamin B12 (180-914) pg/ml Folate (>5.38) ng/ml Procalcitonin (0-0.5) ng/ml Urine Color Yellow Urine Appearance Clear (Clear) Urine pH 5.0 (4.5-7.5) Ur Specific [place] 1.011 (1.000-1.030) Urine Protein Negative (Negative) Urine Glucose (UA) Negative (Negative) Urine Ketones Negative (Negative) Urine Blood Negative (Negative) Urine Nitrite Negative (Negative) Urine Bilirubin Negative (Negative) Urine Urobilinogen Negative (Negative) Ur Leukocyte Esterase Negative (Negative) Adenovirus (PCR) (NotDetected) Anaplasma Smear Babesia Smear B. pertussis DNA (PCR) (NotDetected) B.parapertussis DNA PCR (NotDetected) Lyme Disease Screen (Negative) C. pneumoniae DNA (PCR) (NotDetected) Coronavirus OC43 (PCR) (NotDetected) Coronavirus HKU1 (PCR) (NotDetected) Coronavirus 229E (PCR) (NotDetected) SARS-CoV-2 (PCR) (NotDetected) Coronavirus NL63 (PCR) (NotDetected) Monoscreen (Negative) Human Metapneumovir PCR (NotDetected) Influenza Type A (PCR) (NotDetected) Influenza Type B (PCR) (NotDetected) M. pneumoniae (PCR) (NotDetected) Parainfluenza 1 (PCR) (NotDetected) Parainfluenza 2 (PCR) (NotDetected) Parainfluenza 3 (PCR) (NotDetected) Parainfluenza 4 (PCR) (NotDetected) RSV (PCR) (NotDetected) Entero/Rhino (PCR) (NotDetected) Blood Type O Positive Blood Type Recheck Antibody Screen NEGATIVE Crossmatch See Detail 10/11/24 10/11/24 Range/Units 05:25 05:32 WBC 0.26 L* (4.8-10.8) K/ul RBC 1.66 L (4.70-6.10) M/uL Hgb 6.4 L* (14.0-18.0) g/dl Hct 18.1 L* (42.0-52.0) % MCV 109.0 H (80.0-100.0) fL MCH 38.6 H (25.0-34.0) pg MCHC 35.4 (32.0-36.0) g/dL RDW Std Deviation 61.6 H (36.4-46.3) fL RDW Coeff of Colette 15.6 H (11.5-14.5) % Plt Count 28 L* (130-400) K/uL MPV 10.6 (9.4-12.4) fL Reticulocyte % (Auto) (0.50-2.00) % Neut # (Auto) < 0.50 L* (1.40-6.50) K/uL Reticulocyte # (0.020-0.100) 10^6/uL Platelet Estimate (Normal) RBC Morphology Unremarkable PT (9.0-12.0) Seconds INR (0.9-1.1) Sodium (136-145) mmol/L Potassium (3.5-5.1) mmol/L Chloride (98-107) mmol/L Carbon Dioxide (21-32) mmol/L Anion Gap (3-11) BUN (6-23) mg/dl Creatinine (0.6-1.4) mg/dl Est Cr Clr Drug Dosing ml/min eGFR BUN/Creatinine Ratio (10-20) Glucose (70-99(Fasting)) mg/dl Lactate (0.4-2.0) mmol/L Calcium (8.6-10.3) mg/dl Magnesium (1.7-2.4) mg/dl Iron (35-175) mcg/dl Unsaturated IBC (155-355) mcg/dl Transferrin (200-360) mg/dl Ferritin (8-388) ng/ml Total Bilirubin (0.2-1.0) mg/dl AST (13-39) U/L ALT (7-52) U/L Alkaline Phosphatase (34-104) U/L Troponin I High Sens (0-20) pg/ml Total Protein (6.0-8.3) gm/dl Albumin (3.4-5.0) gm/dl Globulin (2.5-4.0) gm/dl Albumin/Globulin Ratio (0.9-2) Lipase (11-82) U/L Vitamin B12 (180-914) pg/ml Folate (>5.38) ng/ml Procalcitonin (0-0.5) ng/ml Urine Color Urine Appearance (Clear) Urine pH (4.5-7.5) Ur Specific [place] (1.000-1.030) Urine Protein (Negative) Urine Glucose (UA) (Negative) Urine Ketones (Negative) Urine Blood (Negative) Urine Nitrite (Negative) Urine Bilirubin (Negative) Urine Urobilinogen (Negative) Ur Leukocyte Esterase (Negative) Adenovirus (PCR) (NotDetected) Anaplasma Smear See Comment Babesia Smear See Comment B. pertussis DNA (PCR) (NotDetected) B.parapertussis DNA PCR (NotDetected) Lyme Disease Screen (Negative) C. pneumoniae DNA (PCR) (NotDetected) Coronavirus OC43 (PCR) (NotDetected) Coronavirus HKU1 (PCR) (NotDetected) Coronavirus 229E (PCR) (NotDetected) SARS-CoV-2 (PCR) (NotDetected) Coronavirus NL63 (PCR) (NotDetected) Monoscreen (Negative) Human Metapneumovir PCR (NotDetected) Influenza Type A (PCR) (NotDetected) Influenza Type B (PCR) (NotDetected) M. pneumoniae (PCR) (NotDetected) Parainfluenza 1 (PCR) (NotDetected) Parainfluenza 2 (PCR) (NotDetected) Parainfluenza 3 (PCR) (NotDetected) Parainfluenza 4 (PCR) (NotDetected) RSV (PCR) (NotDetected) Entero/Rhino (PCR) (NotDetected) Blood Type Blood Type Recheck O Positive Antibody Screen Crossmatch Administered Medications Magnesium Sulfate/Dextrose (Magnesium Sulfate / D5w) 1 gm in 100 mls @ 50 mls/hr IV ONE ONE Stop: 10/11/24 07:30 Last Admin: 10/11/24 05:47 Dose: 50 mls/hr Documented By: EMB Discontinued Medications Sodium Chloride (Nss) 500 mls @ 999 mls/hr IV .Q31M ONE Stop: 10/11/24 03:44 Last Infusion: 10/11/24 03:58 Dose: Infused Documented By: Admin: 10/11/24 03:27 Dose: 999 mls/hr Documented By: EMB Famotidine (Pepcid 20mg Iv Push) 20 mg in 5 mls @ 2.5 mls/min IV NOW STA Stop: 10/11/24 03:15 Last Admin: 10/11/24 03:27 Dose: 2.5 mls/min Documented By: EMB Magnesium Sulfate/Dextrose (Magnesium Sulfate / D5w) 1 gm in 100 mls @ 100 mls/hr IV NOW STA Stop: 10/11/24 05:03 Last Infusion: 10/11/24 05:27 Dose: Infused Documented By: Admin: 10/11/24 04:30 Dose: 100 mls/hr Documented By: EMB Cefepime HCl (Maxipime 2000mg) 2,000 mg in 20 mls @ 5 mls/min IV NOW STA; Protocol Stop: 10/11/24 04:41 Last Admin: 10/11/24 04:45 Dose: 5 mls/min Documented By: EMB Vancomycin HCl 1,750 mg/ (Sodium Chloride) 535 mls @ 200 mls/hr IV NOW ONE Stop: 10/11/24 07:18 Last Admin: 10/11/24 05:40 Dose: Not Given Documented By: EMB Imaging Data Radiologist's Impression: Chest X-Ray 10/11/24 03:12 EXAM: XR chest 1V portable CLINICAL HISTORY: Chest pain, nonspecific. TECHNIQUE: An X-ray image of the chest is obtained in AP projection. COMPARISON: 03/21/2024 FINDINGS: Pulmonary Parenchyma: Exaggaerted interstitial lung markings bilaterally. Nearly unchanged. Right lower lung zone pulmonary nodule, interval enlargement ( diameter 8.5 mm - was 6 mm) No evidence of pleural effusion or pleural thickening. Heart and Mediastinum: Heart size is enlarged. No mediastinal widening or masses. Prominent hilar Vasculature. Bony Thorax: Bony thorax appears intact without fractures or deformities. Soft Tissues: Soft tissues overlying the chest wall are unremarkable. IMPRESSION: 1. Exaggaerted interstitial lung markings bilaterally. Nearly unchanged. features may suggest chronic bronchitis /interstitial disease. 2. Right lower lung zone pulmonary nodule, interval enlargement ( diameter 8.5 mm - was 6 mm), HRCT is advised as indicated. 3. Cardiomegaly. Stable. Electronically signed by Gus Rueda 10-11-2024 04:48 AM Discharge Plan Visit Data Chief Complaint: Illness Stated Complaint: CHILLS, BALANCE ISSUES SINCE SATURDAY, FEVER ED Provider: Luis Armando Garvey Discharge Problem: Pancytopenia, Anemia, Neutropenia, Fever, Hypomagnesemia, Thrombocytopenia Forms Stand Alone Forms: My [facility] Prescriptions Prescriptions: No Action atorvastatin 20 mg tablet 20 mg PO QPM Qty: 90 3RF Entresto 97-103 mg tablet 1 tab PO BID 90 Days Qty: 180 3RF tamsulosin 0.4 mg capsule 0.4 mg PO HS Qty: 90 3RF Xarelto 20 mg tablet 20 mg PO QPM Qty: 90 3RF potassium chloride 20 mEq tablet extended release 20 meq PO BID Qty: 180 3RF carvedilol 6.25 mg tablet 6.25 mg PO BID Qty: 180 3RF Rx Instructions: must administer with a meal/food aspirin [Aspir-Low] 81 mg tablet,delayed release (DR/EC) 81 mg PO WK Rx Instructions: Wednesdays furosemide 40 mg tablet 40 mg PO 4XWK Qty: 48 3RF Rx Instructions: Saturday//Saturday/Saturday, may also take in place of triamterene/HCTZ if your weight is equal to or greater than 163 lb. triamterene-hydrochlorothiazid 37.5-25 mg capsule 1 cap PO 3XWK Qty: 90 3RF Patient Comments: sat, sat , sat - morning Rx Instructions: Saturday/Saturday/Saturday multivitamin Tablet 1 tab PO QAM ascorbic acid (vitamin C) [Vitamin C] 1,000 mg Tablet 1 tab PO QAM B-complex with vitamin C [Super B Complex-Vitamin C] Tablet 1 tab PO QAM Slow-Mag 71.5 mg Tablet,Delayed Release (Dr/Ec) 71.5 mg PO BID glucosamine-chondroitin 167-133 mg Capsule 1 cap PO QAM cholecalciferol (vitamin D3) [Vitamin D3] 2,000 unit Tablet 2,000 unit PO QAM Referrals Referrals: Haja Torres MD [Primary Care Provider] - Discharge Problem: Anemia Qualifiers: Anemia type: unspecified type Qualified Code(s): D64.9 - Anemia, unspecified Neutropenia Qualifiers: Neutropenia type: unspecified Qualified Code(s): D70.9 - Neutropenia, unspecified Fever Qualifiers: Fever type: unspecified Qualified Code(s): R50.9 - Fever, unspecified
[2024-10-11] MEDS: FAMOTIDINE 20MG IV PUSH 20 MG/5 ML SYR IV STA (03:27)
[2024-10-11] MEDS: SODIUM CHLORIDE 0.9% 500 ML IV ONE (03:27)
[2024-10-11 03:43] LABS: INR 1.8 (0.9-1.1); Prothrombin Time 18.2 Seconds (9.0-12.0)
[2024-10-11 03:44] LABS: Albumin Globulin Ratio 1.5 (0.9-2); Albumin Level 4.1 gm/dl (3.4-5.0); BUN Creatinine Ratio 21.7 (10-20); Bilirubin,Total 2.6 mg/dl (0.2-1.0); Calcium 8.7 mg/dl (8.6-10.3); Creatinine Clr Calc Pharmacy 34.1 ml/min; Globulin 2.7 gm/dl (2.5-4.0); Magnesium 1.6 mg/dl (1.7-2.4); Potassium 4.1 mmol/L (3.5-5.1); Total Protein 6.8 gm/dl (6.0-8.3)
[2024-10-11 03:49] LABS: Troponin I High Sensitivity 21.5 pg/ml (0-20)
[2024-10-11] MEDS ORDERED: SODIUM CHLORIDE 0.9% 50 ML IV PRN ×2 (04:02→17:34)
[2024-10-11] MEDS ORDERED: SODIUM CHLORIDE 0.9% 100 ML IV PRN ×2 (04:02→17:34)
[2024-10-11 04:06] LABS: Hematocrit (blood only) 19.4 % (42.0-52.0); Hemoglobin 6.9 g/dl (14.0-18.0); Mean Corpuscular Hemoglobin 38.8 pg (25.0-34.0); Mean Corpuscular Hgb Conc 35.6 g/dL (32.0-36.0); Mean Platelet Volume 11.4 fL (9.4-12.4); Neutrophils # (auto) < 0.50 K/uL (1.40-6.50); Platelet Count 31 K/uL (130-400); Platelet Estimate Decreased (Normal); RDW Coefficient of Variation 15.8 % (11.5-14.5); RDW Standard Deviation 61.2 fL (36.4-46.3); Red Blood Count 1.78 M/uL (4.70-6.10); White Blood Count 0.32 K/ul (4.8-10.8)
[2024-10-11 04:13] LABS: Reticulocyte % 1.79 % (0.50-2.00)
[2024-10-11] MEDS: MAGNESIUM SULFATE / D5W 1 GM/100 ML BAG IV STA (04:30)
[2024-10-11 04:32] LABS: Adenovirus PCR Not Detected (NotDetected); Bordetella parapertussis PCR Not Detected (NotDetected); Bordetella pertussis PCR Not Detected (NotDetected); Chlamydia pneumoniae PCR Not Detected (NotDetected); Coronavirus 229E PCR Not Detected (NotDetected); Coronavirus CoV-2 (COVID19)PCR Not Detected (NotDetected); Coronavirus HKU1 PCR Not Detected (NotDetected); Coronavirus NL63 PCR Not Detected (NotDetected); Coronavirus OC43PCR Not Detected (NotDetected); Human Metapneumovirus PCR Not Detected (NotDetected); Influenza A PCR Not Detected (NotDetected); Influenza B PCR Not Detected (NotDetected); Mycoplasma pneumoniae PCR Not Detected (NotDetected); Parainfluenza Virus 1 PCR Not Detected (NotDetected); Parainfluenza Virus 2 PCR Not Detected (NotDetected); Parainfluenza Virus 3 PCR Not Detected (NotDetected); Parainfluenza Virus 4 PCR Not Detected (NotDetected); Respiratory Syncytial VirusPCR Not Detected (NotDetected); Rhinovirus/Enterovirus PCR Not Detected (NotDetected)
[2024-10-11 04:36] LABS: Appearance Urine Clear (Clear); Bilirubin Urine Negative (Negative); Blood Urine Negative (Negative); Color Urine Yellow; Glucose Urine UA Negative (Negative); Ketones Urine Negative (Negative); Leukocyte Esterase Urine Negative (Negative); Nitrite Urine Negative (Negative); Protein Urine Negative (Negative); Specific Gravity Urine 1.011 (1.000-1.030); Urobilinogen Urine Negative (Negative)
[2024-10-11] MEDS ORDERED: VANCOMYCIN CONSULT ACTIVE PRN (04:38)
[2024-10-11 04:45] LABS: Ferritin 406.7 ng/ml (8-388)
[2024-10-11] MEDS: CEFEPIME 2000MG 2,000 MG/20 ML SYR IV STA (04:45)
--- NOTE | 2024-10-11 04:48 | XRay Report ---
EXAM: XR chest 1V portable CLINICAL HISTORY: Chest pain, nonspecific. TECHNIQUE: An X-ray image of the chest is obtained in AP projection. COMPARISON: 03/21/2024 FINDINGS: Pulmonary Parenchyma: Exaggaerted interstitial lung markings bilaterally. Nearly unchanged. Right lower lung zone pulmonary nodule, interval enlargement ( diameter 8.5 mm - was 6 mm) No evidence of pleural effusion or pleural thickening. Heart and Mediastinum: Heart size is enlarged. No mediastinal widening or masses. Prominent hilar Vasculature. Bony Thorax: Bony thorax appears intact without fractures or deformities. Soft Tissues: Soft tissues overlying the chest wall are unremarkable. IMPRESSION: 1. Exaggaerted interstitial lung markings bilaterally. Nearly unchanged. features may suggest chronic bronchitis /interstitial disease. 2. Right lower lung zone pulmonary nodule, interval enlargement ( diameter 8.5 mm - was 6 mm), HRCT is advised as indicated. 3. Cardiomegaly. Stable. Electronically signed by Gus Rueda 10-11-2024 04:48 AM
--- NOTE | 2024-10-11 05:20 | History & Physical Report ---
Date of Service October 11, 2024 Assessment & Plan (1) Pancytopenia: (2) Neutropenia: (3) Hypomagnesemia: (4) Hyponatremia: (5) Elevated troponin: (6) (HFpEF) heart failure with preserved ejection fraction: (7) Renal insufficiency: (8) Pulmonary nodule: Plan Patient is an 84-year-old male with past medical history of HF PEF, A-fib on Xarelto, hypertension, CKD, BPH. he presented to the ED via EMS due to "feeling lousy" with chills and dizziness since . He was found to be pancytopenic with WBC 0.32, Hgb 6.9, neutrophil count less than 0.50, platelets 31 in the ED. ED provider ordered 1 PRBC to be transfused. Patient is being admitted for pancytopenia requiring blood transfusion, urgent hematology consult placed. Differential remains broad at this point. #pancytopenia/neutropenia cause unknown on admission, differential remains broad; differential includes but not limited to viral infection, tickborne illness, myelodysplastic syndrome, malignancy, blast crisis CXR showed exaggerated interstitial lung markings bilaterally (chronic bronc hitis/interstitial disease), RLL pulmonary nodule increased in diameter from 6 mm to 8.5 mm (HRCT as indicated) WBC 0.26, Hgb 6.4, HCT 18.1%, plt count 28, neutrophil count <0.50 Bio fire negative, VSS, afebrile neutropenic precautions neutropenic coverage - given cefepime in ed; convert to Zosyn MRSA swab ordered - consider adding coverage with linezolid if positive follow blood cultures ordered tick borne screening, peripheral smear, CMV screen, monospot, parvovirus screen hold ASA and Xarelto hematology consulted #hypomagnesemia/ hyponatremia 2/2 dieretic use and poor po intake mag 1.6, K+ 4.1, NA 130 Sodium at baseline 2 G IV mag ordered continue home mag and potassium supplements trend BMP and mag #Elevated troponin Suspect 2/2 demand ischemia with above 21.5 -> 23.9 EKG showing A-fib, no ischemic changes patient denies any chest pain Trend troponin #HFpEF CXR showed cardiomegaly most recent EF 60 to 65% Echo 02/2024 revealed moderate pulmonic regurg, severe tricuspid regurg, mild LVH continue Entresto, Lasix, carvedilol, Dyrenium - took Lasix 10/11 prior to arrival to ED, to resume 10/13 monitor for taco/trali with blood transfusion above strict I's and O's #renal insufficiency Creatinine 1.75 on admission Renal function waxes and wanes UA negative avoid nephrotoxic agents 500 mL NSS in the ED given Trend BMP #pulmonary nodule CXR revealed right lower lung zone pulmonary nodule increased from 6 mm to 8.5 mm patient was former smoker Recommend HRCT chest follow-up in outpatient setting Chronic stable diagnoses: A-fibcontinue carvedilol, holding Xarelto HLDcontinue atorvastatin, holding aspirin BPHcontinue tamsulosin VTE ppx: SCDs, defer chemical ppx with pancytopenia Diet: heart healthy, low sodium Dispo: PCU Admission and Anticipated Discharge Date Admission Date: 10/11/24 History of Present Illness Chief Complaint: illness Primary Care Provider: Haja Torres MD Patient is an 84-year-old male with past medical history of HF PEF, A-fib on Xar elto, hypertension, CKD, BPH. he presented to the ED via EMS due to "feeling lousy" with chills and dizziness since . He was found to be pancytopenic with WBC 0.32, Hgb 6.9, neutrophil count less than 0.50, platelets 31 in the ED. ED provider ordered 1 PRBC to be transfused. Patient is being admitted for pancytopenia requiring blood transfusion, urgent hematology consult placed. Differential remains broad at this point. Patient seen at bedside. He stated he just has not felt well since . He endorses dizziness when he goes from sitting to standing and chills. He has no history of pancytopenia, no history of cancer, he denies any recent bleeding. previous CBCs reveal mild microcytic hypochromic anemia, most recent Hgb May 2024 11.1. Patient denies fever headache, rhinorrhea, sore throat, cough, sputum production, dyspnea, dyspnea on exertion, chest pain, abdominal pain, nausea, vomiting, diarrhea,edema, numbness, tingling, extreme bruisability, blood in stool, hematemesis. He lives at home alone, he has no family, he has neighbors that check in on him. He was a former smoker, he denies alcohol use. He took his home medications last evening and took his Lasix prior to coming into the ED. He wishes to be full code. Handoff from ED provider that he reach out to the lab regarding analyzing blood for any blast, lab denies seeing any blasts. Concern for blast crisis. Allergies Allergy/AdvReac Type Severity Reaction Status Date / Time Penicillins Allergy Intermediate "i just Verified 09/08/24 09:38 didn't feel right" years ago Home Medications Medication Instructions Recorded Confirmed Type B-complex with vitamin C (Super B 1 tab PO QAM 06/03/18 10/11/24 History Complex-Vitamin C tablet) ascorbic acid (vitamin C) 1,000 mg 1 tab PO QAM 06/03/18 10/11/24 History tablet (Vitamin C) glucosamine-chondroitin 167 mg-133 1 cap PO QAM 06/03/18 10/11/24 History mg capsule magnesium chloride 71.5 mg 71.5 mg PO BID 06/03/18 10/11/24 History (magnesium chloride) tablet,delayed release (Slow-Mag) multivitamin 1 tab PO QAM 06/03/18 10/11/24 History cholecalciferol (vitamin D3) 50 2,000 unit PO QAM 08/14/18 10/11/24 History mcg (2,000 unit) tablet (Vitamin D3) aspirin 81 mg tablet,delayed 81 mg PO WK 10/09/22 10/11/24 History release (Aspir-Low) atorvastatin 20 mg tablet 20 mg PO QPM #90 tabs 12/17/23 10/11/24 Rx sacubitril 97 mg-valsartan 103 mg 1 tab PO BID 90 days #180 tabs 01/08/24 10/11/24 Rx tablet (Entresto) potassium chloride 20 mEq 20 meq PO BID #180 tabs 03/10/24 10/11/24 Rx tablet,extended release rivaroxaban 20 mg tablet (Xarelto) 20 mg PO QPM #90 tabs 03/10/24 10/11/24 Rx tamsulosin 0.4 mg capsule 0.4 mg PO HS #90 caps 03/10/24 10/11/24 Rx furosemide 40 mg tablet 40 mg PO 4XWK #48 tabs 03/26/24 10/11/24 Rx triamterene 37.5 1 cap PO 3XWK #90 caps 03/26/24 10/11/24 Rx mg-hydrochlorothiazide 25 mg capsule carvedilol 6.25 mg tablet 6.25 mg PO BID #180 tabs 08/26/24 10/11/24 Rx Past Med/Surg History Problem List (Updated 10/11/24 @ 06:26 by Luis Armando Garvey MD) Thrombocytopenia (Acute) Hypomagnesemia (Acute) Fever (Acute) Neutropenia (Acute) Anemia (Acute) Pancytopenia (Acute) Pulmonary nodule Renal insufficiency (HFpEF) heart failure with preserved ejection fraction Elevated troponin Hypomagnesemia Neutropenia Pancytopenia Hyponatremia (Acute) Bilateral edema of lower extremity (Acute) Acute on chronic systolic heart failure Tricuspid regurgitation Mitral regurgitation Colon cancer screening Hypertension H/O stroke without residual deficits Varicocele (Acute) Proteinuria (Acute) Inhibited sexual excitement (Acute) Impaired fasting glucose (Acute) Carotid artery plaque (Acute) Anemia (Acute) BPH loc w urin obs/LUTS Hematoma of lower leg Dyspnea on exertion Permanent atrial fibrillation Systolic congestive heart failure with reduced left ventricular function, NYHA class 2 History of colon polyps Chronic kidney disease, stage 3 Medical History HTN (hypertension) med controls Enlarged prostate Cancer basal cell left jain Transient ischemic attack (TIA) X 3 (OVER 10 YEARS AGO) Atrial fibrillation dx a long time ago/ no hx cardioversion Hyperlipidemia hx Surgical History Difficult intubation 04/28/14 - Grade 1 view, required glidescope 4.0. Atraumatic intubation. History of esophagogastroduodenoscopy (EGD) History of colonoscopy History of herniorrhaphy Inguinal hernia repairs - Left x 3, Right x 2 History of tooth extraction History of tonsillectomy History of adenoidectomy History of cataract surgery RT Family History Father Myocardial infarction Hypertension Coronary heart disease Mother Heart disease Breast cancer Other No significant family history Denies family history of Ovarian cancer Prostate cancer Colorectal cancer Social History Smoking Status: Former smoker Tobacco Type: Cigarettes Age Started Using Tobacco: 21; Age Quit Using Tobacco: 40; packs per day: 1; Cigarettes Per Day: 20; Second Hand Exposure: No; Do You Dip or Chew Tobacco: No; Hx Alcohol Use: No Hx Substance Use: No Preferred Language: Divehi Communication Ability: Effective Visual Impairment: No Limitations Hearing Ability: Normal Recreational Assistant Required: No Beliefs That Will Affect Care: None marital status: single Current Living Situation: Alone current occupational status: retired current occupation: [employer] Other Information That Helps Us Care for You: No Feels Safe at Home: Yes Safety Concerns: Feels Safe At This Time Childhood Exposure to Second-Hand Smoke: Yes Diet: regular caffeine: No during the past year weight has: remained stable Dental Care, Regularly: Yes Physical Activity Frequency: 3-4 Times per Week Seatbelt Use: always Sunscreen Use: Yes Assistive Devices: Glasses Review of Systems Review of Systems: See HPI Physical Exam Physical Exam: The patient is awake, alert and oriented 3, frail, pale. HEENT- EOMI, mucous membranes dry. Hearing grossly intact. Heart- Irregularly irregular rhythm. normal S1 and S2. No murmurs, rubs or gallops. Lungs-clear bilaterally, no respiratory distress, no accessory muscle use. Abdomen-normal bowel sounds and soft. No ascites noted. Non-tender. Extremities- no clubbing, cyanosis, or edema. Rheumatologic-normal range of motion. Psychiatric-normal affect. Skin: No significant bruising Results & Data Results & Data Vital Signs (Past 12 Hours) Vital Signs Temp Pulse Pulse Resp BP BP Pulse Ox 10/11/24 04:00 36.9 C 89 24 139/67 94 10/11/24 03:24 93 10/11/24 03:23 84 10/11/24 03:07 37.7 C H 96 H 22 139/67 95 O2 Del Method 10/11/24 04:00 Room Air 10/11/24 03:24 Room Air 10/11/24 03:23 10/11/24 03:07 Room Air Laboratory Results reviewed CBC, PT/INR, CMP, lactate, magnesium, iron panel, troponin, lipase, B12, folate, procalcitonin, UA, bio fire Diagnostic Findings reviewed CXR Medications Administered ED500 mL NSS bolus, Pepcid 20 Mg IV, magnesium 1G IV, cefepime 2G IV Admissionmagnesium 1G IV ECG Additional Comments: A-fib Rate 82 QTc 432 Code Status & VTE Plan Code Status full code VTE Prophylaxis Plan VTE Prophylaxis will be ordered: Yes Supervising Physician Co-Signing Physician Notes Attending addendum: I have physically seen this patient, have supervised the GLORIA's activities, and agree with the H&P unless as otherwise noted. Assessment and Plan: The patient is an 84-year-old male with past medical history including HFpEF, atrial fibrillation on Xarelto, hypertension, CKD, BPH and LUTS. He presents to the emergency department with generalized myalgias and arthralgias, chills and dizziness, and feeling lousy since 3 days ago. Workup in the emergency department included a new diagnosis of pancytopenia, with WBC 0.32, hemoglobin 6.9, and platelets 31. Patient has undergone type and screen, and plans by the ED to transfuse 1 unit PRBCs. He is referred for evaluation for admission to the [facility] service, with hematology/oncology consult. Pancytopenia/neutropenia- Unclear etiology at this time. Tickborne panel, viral panel, has been ordered, with differential including but not limited to myelodysplastic syndrome, leukemia, blast crisis, malignancy. Chest x-ray showing exaggerated interstitial lung markings bilaterally with chronic bronchitis/interstitial disease. Right lower lobe pulmonary nodule increased in diameter from 6 mm to 8.5 mm BioFire testing negative Neutropenic precautions Placed on Zosyn 4.5 g IV every 8 hours for neutropenic coverage MRSA swab ordered Follow urine cultures and sensitivities Follow blood cultures and sensitivities Peripheral smear has been ordered along with tick screen, CMV screen, Monospot a nd parvovirus Holding aspirin and Xarelto Consult hematology/oncology Electrolyte disturbances/hypomagnesemia/hyponatremia- Magnesium 1.6, sodium 130 Give magnesium sulfate 2 g IV, recheck laboratories in the a.m. Elevated troponin- The patient will be admitted to telemetry for serial cardiac enzymes, serial EKG's, cardiac rhythm monitoring and a 2-D echocardiogram with Dopplers. Initial troponin 21.5 with follow-up 23.9 EKG with atrial fibrillation Likely supply demand mismatch Acute kidney injury superimposed on CKD- Creatinine 1.77, with base 1.39 Follow posttransfusion, recheck laboratories serially Chronic medical conditions: Atrial fibrillation-continue carvedilol. Holding Xarelto and aspirin Hyperlipidemia-continue atorvastatin BPH with LUTS-continue tamsulosin PG Care Time/CCT Total # of Minutes Spent Total Time Spent with Patient: Total time spent is greater than 50% in coordination of care (as documented) at patient's floor/unit and/or counseling patient: Coding Level of Care Code 60619 INT INP/OBS CARE 3MIN Diagnoses Pancytopenia D61.818 Neutropenia D70.9 Hypomagnesemia E83.42 Hyponatremia E87.1 Elevated troponin R79.89 (HFpEF) heart failure with preserved ejection fraction I50.30 Renal insufficiency N28.9 Pulmonary nodule R91.1
[2024-10-11 05:25] LABS: Folate (Folic Acid),Ser orPlas > 22.30 ng/ml (>5.38)
[2024-10-11 05:26] LABS: Vitamin B12 669 pg/ml (180-914)
[2024-10-11] MEDS: VANCOMYCIN HCL 1,750 MG in SODIUM CHLORIDE 0.9% 500 ML IV ONE (05:40)
[2024-10-11] MEDS: MAGNESIUM SULFATE / D5W 1 GM/100 ML BAG IV ONE (05:47)
[2024-10-11 05:48] LABS: Monotest Negative (Negative)
[2024-10-11 05:57] LABS: Hematocrit (blood only) 18.1 % (42.0-52.0); Hemoglobin 6.4 g/dl (14.0-18.0); Mean Corpuscular Hemoglobin 38.6 pg (25.0-34.0); Mean Corpuscular Hgb Conc 35.4 g/dL (32.0-36.0); Mean Platelet Volume 10.6 fL (9.4-12.4); Neutrophils # (auto) < 0.50 K/uL (1.40-6.50); Platelet Count 28 K/uL (130-400); RDW Coefficient of Variation 15.6 % (11.5-14.5); RDW Standard Deviation 61.6 fL (36.4-46.3); Red Blood Count 1.66 M/uL (4.70-6.10); White Blood Count 0.26 K/ul (4.8-10.8)
[2024-10-11 06:13] LABS: RBC Morphology Unremarkable
[2024-10-11] MEDS ORDERED: DOCUSATE SODIUM 100 MG CAP PO PRN (11:20)
[2024-10-11] MEDS ORDERED: MELATONIN 3 MG TAB PO PRN (11:20)
[2024-10-11] MEDS ORDERED: ONDANSETRON INJ 2 MG/ML 2 ML VIAL IV PRN (11:20)
[2024-10-11] MEDS: POTASSIUM CHLORIDE CRTAB 20 MEQ TABCR PO SCH (11:39)
[2024-10-11] MEDS: 4.5GM X1 IV ONE (11:42)
[2024-10-11] MEDS: carvediloL 6.25 MG TAB PO SCH (11:53)
[2024-10-11] MEDS: MAGNESIUM CHLORIDE W/CALCIUM 64MG DELAYED REL TAB PO SCH (11:53)
[2024-10-11] MEDS: VALSARTAN/SACUBITRIL 103/97MG TAB PO SCH (11:53)
--- NOTE | 2024-10-11 12:13 | Electrocardiogram Report ---
Test Reason : Blood Pressure : */* mmHG Vent. Rate : 82 BPM Atrial Rate : * BPM P-R Int : * ms QRS Dur : 80 ms QT Int : 370 ms P-R-T Axes : * 68 61 degrees QTcB Int : 432 ms Atrial fibrillation with premature ventricular or aberrantly conducted complexes Low voltage QRS Abnormal ECG When compared with ECG of 21-Mar-2024 04:45, No significant change was found Confirmed by Ward Granda ([id number]) on 10/11/2024 12:12:54 PM Referred By: REFERRED SELF Confirmed By: Ward Granda
[2024-10-11 12:58] LABS: Albumin Globulin Ratio 1.5 (0.9-2); BUN Creatinine Ratio 20.9 (10-20); Bilirubin,Total 2.5 mg/dl (0.2-1.0); Calcium 8.5 mg/dl (8.6-10.3); Creatinine Clr Calc Pharmacy 33.7 ml/min; Globulin 2.7 gm/dl (2.5-4.0); Potassium 3.4 mmol/L (3.5-5.1); Total Protein 6.7 gm/dl (6.0-8.3)
[2024-10-11 13:25] LABS: Hematocrit (blood only) 22.9 % (42.0-52.0); Mean Corpuscular Hemoglobin 36.4 pg (25.0-34.0); Mean Corpuscular Hgb Conc 34.9 g/dL (32.0-36.0); Mean Corpuscular Volume 104.1 fL (80.0-100.0); Mean Platelet Volume 12.1 fL (9.4-12.4); Neutrophils # (auto) < 0.50 K/uL (1.40-6.50); Platelet Count 27 K/uL (130-400); RDW Coefficient of Variation 18.8 % (11.5-14.5); RDW Standard Deviation 70.3 fL (36.4-46.3); White Blood Count 0.39 K/ul (4.8-10.8)
--- NOTE | 2024-10-11 15:13 | Hospitalist Progress Note ---
Date of Service October 11, 2024 Assessment & Plan (1) Pancytopenia: (2) Neutropenia: (3) Hypomagnesemia: (4) Hyponatremia: (5) Elevated troponin: (6) (HFpEF) heart failure with preserved ejection fraction: (7) Renal insufficiency: (8) Pulmonary nodule: Plan 84 y/o with a PMHx of HFpEF, a fib on Xarelto, HTN, CKD, and BPH presented with general malaise. Admitted for pancytopenia requiring blood transfusion and further work up. #Pancytopenia #Neutropenia #Anemia DDx broad - viral, tickborne, oncologic, blast crisis. BioFire negative. MRSA swab negative. RLL pulmonary nodule with increase in size. 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 Would greatly appreciate hematologic input regarding patient's care. continue Zosyn, MRSA nares negative f/u tickborne, parvo, CMV, EBV s/p 1u PRBCs 6.4 --> 8 transfuse < 7 or plts < 15 - use irradiated blood products while neutropenic, 1 unit on hold ordered bone marrow biopsy - NPO @ midnight STAT heme/onc consult placed at 05:27 on 10/11. I did reach out to Dr. Fried regarding plan of care at 14:22 via [employer], which was read without response. Dr. Hanson also reached out to Dr. Fried via [employer] at 17:[address] Fried responded to Dr. Hanson regarding plan of care - recommend bone marrow biopsy and he will sign out to the oncoming provider Dr. Sears. #Elevated troponin Likely demand ischemia in the setting of anemia. Asymptomatic. trend to peak EKG if chest pain #HFpEF #Afib Continue home meds as BP tolerates. If patient requiring multiple units may need additional Lasix to avoid fluid overload. Hold ASA/Xarelto. Is and Os continue home meds monitor for signs of decompensation #CKD3b Avoid nephrotoxins. Baseline ~1.2-1.4. Trend. Monitor and replete electrolytes as indicated. #Pulmonary nodule CXR revealed right lower lung zone pulmonary nodule increased from 6 mm to 8.5 mm. Does have a smoking history. Rec HRCT for further evaluation. Chronic: A-fibcontinue carvedilol, holding Xarelto HLDcontinue atorvastatin, holding aspirin BPHcontinue tamsulosin Code status: full DVT ppx: SCDs, chemo ppx contraindicated with pancytopenia - hold Xarelto/ASA FENGI: HH, low sodium Dispo: PCU Isolation: Neutropenic PT/OT consulted Admission and Anticipated Discharge Date Admission Date: October 11, 2024 Supervising Physician Co-Signing Physician Notes I personally examined the patient and verified all miller points of history and exam, discussed case, and agree with decision making with Dr Leigh night sweat about 3 nights ago, shirt was wet. since then vaguely just not feeling well. no focal sx. came to ER. other than feeling tired, feels OK. did eat a ltitle but feels like if he eats more he'll feel really uncomfortably bloated vitals ntoed nad heent nc at mmm breahting unlabored no accessory muscles good effort skin no rashes no pallor or icterus pancytopenia - -doubt babesia - doesn't really have infectious presentation -could possibly be viral with viral mediated marrow suppression ---much more concerning for hematologic/malignant bone marrow process - d/w hematology coverage - nothing urgent needed today but marrow bx will likely shed light on pathology - IR orders for marrow placed -for now continue empiric zosyn - suspect 1x temp might have been from transfusion but given his counts have to manage as neutropenic fever. MRSA nares negative so holding off on MRSA coverage - does not appear indicated at this time otherwise as above Subjective 84 y/o male admitted for further workup of pancytopenia. Symptoms started - feeling run down and tired. He thought he had some sort of viral illness or a HF exacerbation, but no SOB or leg swelling. He has had some orthostatic hypotension/dizziness as well. May have had a fever as he sweat through his shirt. No rashes, easy bruising, or joint pain. No vomiting. Did have diarrhea yesterday, but no abdominal pain or blood in the stool. No headache, CP, or SOB. No unintentional weight loss or night sweats. Prior to he was feeling well. Review of Systems 2 Review of Systems: See HPI Physical Exam 2 Physical Exam: Gen: elderly appearing patient in NAD, well nourished HEENT: AT NC MMM Resp: CTAB no wheezing no increased work of breathing CV: RRR no m/r/g clinically well perfused, no edema, 2+ peripheral pulses Abd: +BS, soft, non-tender, non-distended MSK: no obvious deformities Skin: no rashes or bruising Neuro: alert and oriented, very aware of his medical conditions Psych: appropriate mood and affect Results & Data Results & Data Laboratory Results 10/11/24 12:11 10/11/24 12:11 Diagnostic Findings Chest X-Ray 10/11/24 03:12 FINDINGS: Pulmonary Parenchyma: Exaggaerted interstitial lung markings bilaterally. Nearly unchanged. Right lower lung zone pulmonary nodule, interval enlargement ( diameter 8.5 mm - was 6 mm) No evidence of pleural effusion or pleural thickening. Heart and Mediastinum: Heart size is enlarged. No mediastinal widening or masses. Prominent hilar Vasculature. Bony Thorax: Bony thorax appears intact without fractures or deformities. Soft Tissues: Soft tissues overlying the chest wall are unremarkable. IMPRESSION: 1. Exaggaerted interstitial lung markings bilaterally. Nearly unchanged. features may suggest chronic bronchitis /interstitial disease. 2. Right lower lung zone pulmonary nodule, interval enlargement ( diameter 8.5 mm - was 6 mm), HRCT is advised as indicated. 3. Cardiomegaly. Stable. Resident Activity Tracking Resident Involvement: Resident Care Provided Care Provided: Adult Hospital Medicine
[2024-10-11] MEDS: PIPERACILLIN/TAZOBACTAM 4.5 GM/100 ML BAG IV SCH (17:06)
[2024-10-11] MEDS: TAMSULOSIN HCL 0.4 MG CAP PO SCH (20:13)
[2024-10-11] MEDS: ATORVASTATIN 20 MG TAB PO SCH (20:15)
[2024-10-11 20:38] LABS: Hematocrit (blood only) 22.2 % (42.0-52.0); Hemoglobin 7.8 g/dl (14.0-18.0); Mean Corpuscular Hemoglobin 36.8 pg (25.0-34.0); Mean Corpuscular Hgb Conc 35.1 g/dL (32.0-36.0); Mean Corpuscular Volume 104.7 fL (80.0-100.0); Mean Platelet Volume 13.4 fL (9.4-12.4); Microcytosis Present; Neutrophils # (auto) < 0.50 K/uL (1.40-6.50); Ovalocytes 1+; Platelet Count 28 K/uL (130-400); RDW Coefficient of Variation 18.8 % (11.5-14.5); RDW Standard Deviation 71.2 fL (36.4-46.3); Red Blood Count 2.12 M/uL (4.70-6.10); White Blood Count 0.37 K/ul (4.8-10.8)
[2024-10-12 07:11] LABS: Albumin Globulin Ratio 1.4 (0.9-2); Albumin Level 3.6 gm/dl (3.4-5.0); BUN Creatinine Ratio 19.2 (10-20); Bilirubin,Total 2.4 mg/dl (0.2-1.0); Calcium 8.1 mg/dl (8.6-10.3); Creatinine Clr Calc Pharmacy 32.7 ml/min; Globulin 2.5 gm/dl (2.5-4.0); Potassium 3.2 mmol/L (3.5-5.1); Total Protein 6.1 gm/dl (6.0-8.3)
[2024-10-12 07:18] LABS: Mean Corpuscular Hemoglobin 36.5 pg (25.0-34.0); Mean Corpuscular Hgb Conc 34.9 g/dL (32.0-36.0); Mean Corpuscular Volume 104.5 fL (80.0-100.0); Mean Platelet Volume 13.5 fL (9.4-12.4); Neutrophils # (auto) < 0.50 K/uL (1.40-6.50); Platelet Count 27 K/uL (130-400); RDW Coefficient of Variation 18.7 % (11.5-14.5); RDW Standard Deviation 70.9 fL (36.4-46.3); White Blood Count 0.37 K/ul (4.8-10.8)
[2024-10-12 07:24] LABS: Troponin I High Sensitivity 79.7 pg/ml (0-20)
[2024-10-12 07:38] LABS: Hematocrit (blood only) 20.9 % (42.0-52.0); Hemoglobin 7.3 g/dl (14.0-18.0)
[2024-10-12] MEDS: TRIAMTERENE/HCTZ 37.5/25MG TAB PO SCH (08:50)
[2024-10-12 09:39] LABS: EBV Nuclear Antigen IgG Ab Negative; EBV Nuclear Antigen IgG Quant < 3.0 U/mL (< 18.0)
[2024-10-12 09:43] LABS: EBV Early Antigen IgG Ab Negative (Negative); EBV Early Antigen IgG Quant < 5.0 U/mL (< 9.0); EBV IgM Quant 25.6 U/mL (< 36.0)
[2024-10-12 09:44] LABS: EBV IgG Quant < 10.0 U/mL (< 18.0)
--- NOTE | 2024-10-12 09:57 | Medical Student Progress Note ---
Date of Service October 12, 2024 Assessment & Plan (1) Hypomagnesemia: (2) Pancytopenia: (3) Pulmonary nodule: (4) (HFpEF) heart failure with preserved ejection fraction: (5) Elevated troponin: (6) Hyponatremia: (7) Permanent atrial fibrillation: (8) Chronic kidney disease, stage 3: (9) Hypokalemia: Plan #Pancytopenia #Neutropenia #Macrocytic Anemia Differential remains broad: viral, tickborne, oncologic, blast crisis. Biofire and MRSA swab negative. R pulmonary nodule on CXR increased in size since February 2024. - Heme consulted, reccomendations appreciated - Continue IV Zosyn for broad coverage - Neutropenic precautions - Bone marrow biopsy ordered - Bone cultures 10/11 pending, NGTD - Peripheral smear 10/11 pending - Babesia, adenovirus, CMV, EBV, parvo pending - s/p 1 unit RBC. - Transfuse < 7 or plts < 15 - use irradiated blood products while neutropenic, 1 unit on hold #Pulmonary nodule CXR revealed right lower lung zone pulmonary nodule increased from 6 mm in February 2024 to 8.5 mm. History of smoking. - HRCT for further evaluation. #Hypokalemia- mild, asymptomatic #Hyponatremia- mild, asymptomatic #Hypomagnesemia- mild Likely secondary to diuretic use and poor PO intake - Replete with KCl. Continue home Mg and K supplements. - Trend BMP qAM - Continue on telemetry for EKG monitoring #Elevated troponin Likely demand ischemia in the setting of anemia. Asymptomatic. - Trend to peak - Continue on telemetry for EKG - Echocardiogram pending #Heart Failure with preserved ejection fraction #Atrial Fibrillation Continue home meds as BP tolerates. If patient requiring multiple units may need additional Lasix to avoid fluid overload. Hold ASA/Xarelto. - Monitor Is and Os - continue home meds - monitor for signs of decompensation #CKD 3b - Avoid nephrotoxins. Baseline ~1.2-1.4. Trend. Monitor and replete electrolytes as indicated. Admission and Anticipated Discharge Date Admission Date: October 11, 2024 Supervising Attestation ATTESTATION I also saw the patient and confirmed miller portions of the history and exam. I agree with the impression and plan in the resident documentation, and as summarized below. Patient without new complaints this morning. Reviewed labs and plan for marrow biopsy today. EXAM VS as noted Alert and oriented. CV I/I Lungs CTA DATA Labs Labs consistent with pancytopenia BMP with mild hyponatremia, but improved; hypokalemia; CKD Imaging CXR shows right lower lung zone pulmonary nodule, interval enlargement ( diameter 8.5 mm - was 6 mm). Micro Blood cultures taken 10/11/2024 show no growth at 24 hours. IMPRESSION & PLAN Pancytopenia Hematology consult pending Continue IV Zosyn with neutropenic precautions Bone marrow biopsy today Hypokalemia Replete and monitor Atrial fib, rate controlled Xarelto on hold for biopsy; resume, likely tomorrow Additional per resident documentation Subjective Patient was resting comfortably in bed. Continues to endorse tiredness, general malaise. Denies recent weight loss, easy bruising/bleeding, changes in appetite. He reports one bout of night sweats on . Review of Systems Review of Systems: 10 point ROS complete and negative excep t for mentioned above. Physical Exam Constitutional: WD/WN, vitals as above Respiratory: normal respiratory effort Auscultation: + wheezes Cardiovascular: Rate/Rhythm: + irregularly irregular Vessels: normal peripheral pulses Gastrointestinal (Abdomen): normal bowel sounds, soft, nontender, no hepatosplenomegaly Results & Data Vital Signs (Past 12 Hours) Vital Signs Temp Pulse Pulse Resp BP BP Pulse Ox 10/12/24 07:41 10/12/24 07:28 36.8 C 81 16 146/76 H 94 10/12/24 07:14 76 10/12/24 04:00 36.8 C 82 17 133/65 93 10/11/24 22:54 36.9 C 87 17 139/85 90 O2 Del Method 10/12/24 07:41 Room Air 10/12/24 07:28 Room Air 10/12/24 07:14 10/12/24 04:00 Room Air 10/11/24 22:54 Room Air Diagnostic Findings CXR: 1. Exaggerated interstitial lung markings bilaterally. Nearly unchanged. features may suggest chronic bronchitis /interstitial disease. 2. Right lower lung zone pulmonary nodule, interval enlargement ( diameter 8.5 mm - was 6 mm), HRCT is advised as indicated. Resident Activity Tracking Resident Involvement: Resident Care Provided Care Provided: Adult Hospital Medicine Resident Supervision Co-Signing Physician Notes Resident Attestation I was personally present during medical student and patient encounter and independently interviewed and examined the patient and verified the miller history and physical, reviewed labs and image studies, discussed the case with Josi Dawson (), and agree with the above mentioned findings and care plan.
[2024-10-12] MEDS: POTASSIUM CHLORIDE CRTAB 20 MEQ TABCR PO STA (11:27)
--- NOTE | 2024-10-12 13:40 | XCELERA ---
[id number] \\[email or web address]_PDF_[id number]
[2024-10-12] MEDS: ACETAMINOPHEN 1000 MG/100 ML IV IV ONE (13:58)
--- NOTE | 2024-10-12 15:02 | CT Scan Report ---
CT guided bone marrow biopsy INDICATION: Pancytopenia PROCEDURE: Procedure and risks were explained. Informed consent was obtained. A final timeout was com pleted. The patient was placed prone on the CT exam table. The left gluteal region was prepped and dr aped in sterile fashion. 1% lidocaine was utilized for skin anesthesia. The patient received 1 g Tyle nol IV. Utilizing CT guidance, an 11-gauge bone biopsy needle was advanced into the left iliac bone. Multiple aspirates and one bone core was obtained and given to the lab. The needle was removed and Band-Aid a pplied. The patient tolerated the procedure well. Vital signs will be monitored postprocedure. IMPRESSION: Bone marrow biopsy as above. Performed, dictated, and signed by Michael Castillo PA-C; to be co-signed by Dr. Jose D Harman. Electronically signed by: Jose D Harman M.D. 10/12/2024 4:10 PM
[2024-10-12] MEDS: fentaNYL citrate PF 100 MCG/2 ML VIAL ONE (19:49)
[2024-10-12] MEDS: ACETAMINOPHEN 325 MG TAB PO PRN (20:05)
[2024-10-13] MEDS: CALCIUM CARBONATE 500 MG CHEWABLE TAB PO PRN (01:44)
[2024-10-13 07:02] LABS: Albumin Globulin Ratio 1.5 (0.9-2); Albumin Level 3.8 gm/dl (3.4-5.0); BUN Creatinine Ratio 22.4 (10-20); Bilirubin,Total 2.8 mg/dl (0.2-1.0); Calcium 8.7 mg/dl (8.6-10.3); Creatinine Clr Calc Pharmacy 34.7 ml/min; Globulin 2.6 gm/dl (2.5-4.0); Potassium 3.9 mmol/L (3.5-5.1); Total Protein 6.4 gm/dl (6.0-8.3)
[2024-10-13 07:08] LABS: Hematocrit (blood only) 23.7 % (42.0-52.0); Hemoglobin 8.3 g/dl (14.0-18.0); Mean Corpuscular Hemoglobin 36.7 pg (25.0-34.0); Mean Corpuscular Volume 104.9 fL (80.0-100.0); Neutrophils # (auto) < 0.50 K/uL (1.40-6.50); Platelet Count 28 K/uL (130-400); RDW Coefficient of Variation 18.5 % (11.5-14.5); RDW Standard Deviation 70.6 fL (36.4-46.3); Red Blood Count 2.26 M/uL (4.70-6.10); White Blood Count 0.39 K/ul (4.8-10.8)
[2024-10-13] MEDS: FUROSEMIDE 40 MG TAB PO SCH (08:44)
--- NOTE | 2024-10-13 09:01 | Hematology/Oncology Prog Note ---
Date of Service October 13, 2024 Assessment & Plan Admission and Anticipated Discharge Date Admission Date: October 11, 2024 Results & Data Vital Signs (Past 12 Hours) Vital Signs Temp Pulse Resp BP Pulse Ox O2 Del Method 10/13/24 07:52 37 C 87 22 117/75 95 Room Air 10/13/24 02:43 36.6 C 92 H 18 119/63 96 Room Air 10/12/24 23:20 37.1 C 85 18 107/57 L 95 Room Air
--- NOTE | 2024-10-13 10:11 | Medical Student Progress Note ---
Date of Service October 13, 2024 Assessment & Plan (1) Pancytopenia: (2) Neutropenia: (3) Hypomagnesemia: (4) Hyponatremia: (5) Elevated troponin: (6) (HFpEF) heart failure with preserved ejection fraction: (7) Renal insufficiency: (8) Pulmonary nodule: (9) Permanent atrial fibrillation: (10) Chronic kidney disease, stage 3: (11) Hypokalemia: Plan 84 y/o male with PMH of HFpEF, afib, HTN, CKD3b presenting with malaise for 5 days. Admitted for pancytopenia, WBC 0.32 ANC < 0.5 Hgb Platelets on admission, s/p 1 unit of platelets. Pathology report consistent with AML, consider transfer to [place] for treatment. #Pancytopenia #Acute Myeloid Leukemia #Macrocytic Anemia Pathology findings consistent for AML. R pulmonary nodule on CXR increased in size since February 2024. - Heme consulted, based on Dr. Sears's interpretation of pathology report findings are consistent with AML. - Continue IV Zosyn for broad coverage - Neutropenic precautions - Bone marrow biopsy complete 10/12 - Bone cultures 10/11 negative, NGTD - Peripheral smear 10/12 pending - Adenovirus, EBV, mono negative. Parvo, CMV, Babesia pending - s/p 1 unit RBC. - Transfuse < 7 or plts < 15 - use irradiated blood products while neutropenic, 1 unit on hold - Echocardiogram complete, minimal change from February 2024 #Pulmonary nodule CXR revealed right lower lung zone pulmonary nodule increased from 6 mm in February 2024 to 8.5 mm. History of smoking. - HRCT for further evaluation. #Hypokalemia- mild, asymptomatic #Hyponatremia- mild, asymptomatic #Hypomagnesemia- mild Likely secondary to diuretic use and poor PO intake - Replete with KCl. Continue home Mg and K supplements. - Trend BMP qAM - Continue on telemetry for EKG monitoring #Elevated troponin Likely demand ischemia in the setting of anemia. Asymptomatic. - Trend to peak - Continue on telemetry for EKG - Echocardiogram pending #Heart Failure with preserved ejection fraction #Atrial Fibrillation Continue home meds as BP tolerates. If patient requiring multiple units may need additional Lasix to avoid fluid overload. Hold ASA/Xarelto. - Monitor Is and Os - continue home meds - monitor for signs of decompensation #CKD 3b - Avoid nephrotoxins. Baseline ~1.2-1.4. Trend. Monitor and replete electrolytes as indicated. Chronic: A-fibcontinue carvedilol, holding Xarelto HLDcontinue atorvastatin, holding aspirin BPHcontinue tamsulosin Code status: full DVT ppx: SCDs, chemo ppx contraindicated with pancytopenia - hold Xarelto/ASA FENGI: HH, low sodium Dispo: PCU Isolation: Neutropenic PT/OT consulted Admission and Anticipated Discharge Date Admission Date: October 11, 2024 Supervising Attestation ATTESTATION I also saw the patient and confirmed miller portions of the history and exam. I agree with the impression and plan in the resident documentation, and as summarized below. Patient understandably adjusting to news. No new complaints today. EXAM VS as noted Alert and oriented. CV I/I Lungs CTA DATA Labs Labs consistent with pancytopenia, similar to yesterday Preliminary pathology suggests AML Imaging CXR shows right lower lung zone pulmonary nodule, interval enlargement ( diameter 8.5 mm - was 6 mm). Micro Blood cultures taken 10/11/2024 show no growth at 48 hours. IMPRESSION & PLAN Pancytopenia Appreciate hematology consult Continue IV Zosyn with neutropenic precautions Pending transfer to [facility] [place] Atrial fib, rate controlled Xarelto resumed Additional per resident documentation Subjective Patient was sitting up in bed. Continues to endorse tiredness, general malaise. Feeling stronger today than yesterday. Review of Systems Review of Systems: See HPI Physical Exam Constitutional: WD/WN, vitals as above Respiratory: normal respiratory effort Cardiovascular: Rate/Rhythm: + irregularly irregular Vessels: normal peripheral pulses Gastrointestinal (Abdomen): normal bowel sounds, soft, nontender, no hepatosplenomegaly Results & Data Vital Signs (Past 12 Hours) Vital Signs Temp Pulse Resp BP Pulse Ox O2 Del Method 10/13/24 02:43 36.6 C 92 H 18 119/63 96 Room Air 10/12/24 23:20 37.1 C 85 18 107/57 L 95 Room Air Resident Activity Tracking Resident Involvement: Resident Care Provided Care Provided: Adult [facility] Medicine Resident Supervision Co-Signing Physician Notes Resident Attestation I was personally present during medical student and patient encounter and independently interviewed and examined the patient and verified the miller history and physical, reviewed labs and image studies, discussed the case with Sriya Vontela (MS), and agree with the above mentioned findings and care plan. Patient's case with Heme/Onc who stated that pathology report showed findings consistent with AML. Also stated that for acute management, patient will need to be transferred to [place] to begin induction therapy which will take approximately a week, after which she can continue scheduled treatments locally. Treatments for patient's demographic is usually mild. (7 days of treatment followed by oral form). Discussed this diagnosis and next steps with the patient and, after discussing patient's goals of care and clarifying how aggressive he wants to be in terms of treatment for the same diagnosis, patient did agree to be transferred to [place] for induction therapy. Patient states that he has no family that he would like us to update, and has a few friends in the area that he can call. Will start the transfer process with the transfer center. Answered his questions to the best of my ability, but patient encouraged to elt me know if he has any additional questions.
[2024-10-13 16:20] VITALS: BP 143/76; PULSE 90; RESP 18; TEMP 98.2; O2SAT 93
--- NOTE | 2024-10-13 17:35 | Discharge Summary ---
Date of Service October 13, 2024 Admission HPI Per Admitting Provider Patient is an 84-year-old male with past medical history of HF PEF, A-fib on Xarelto, hypertension, CKD, BPH. he presented to the ED via EMS due to "feeling lousy" with chills and dizziness since . He was found to be pancytopenic with WBC 0.32, Hgb 6.9, neutrophil count less than 0.50, platelets 31 in the ED. ED provider ordered 1 PRBC to be transfused. Patient is being admitted for pancytopenia requiring blood transfusion, urgent hematology consult placed. Differential remains broad at this point. Patient seen at bedside. He stated he just has not felt well since . He endorses dizziness when he goes from sitting to standing and chills. He has no history of pancytopenia, no history of cancer, he denies any recent bleeding. previous CBCs reveal mild microcytic hypochromic anemia, most recent Hgb May 2024 11.1. Patient denies fever headache, rhinorrhea, sore throat, cough, sputum production, dyspnea, dyspnea on exertion, chest pain, abdominal pain, nausea, vomiting, diarrhea,edema, numbness, tingling, extreme bruisability, blood in stool, hematemesis. He lives at home alone, he has no family, he has neighbors that check in on him. He was a former smoker, he denies alcohol use. He took his home medications last evening and took his Lasix prior to coming into the ED. He wishes to be full code. Handoff from ED provider that he reach out to the lab regarding analyzing blood for any blast, lab denies seeing any blasts. Concern for blast crisis. Admission Exam Per Admitting Provider The patient is awake, alert and oriented 3, frail, pale. HEENT- EOMI, mucous membranes dry. Hearing grossly intact. Heart- Irregularly irregular rhythm. normal S1 and S2. No murmurs, rubs or gal lops. Lungs-clear bilaterally, no respiratory distress, no accessory muscle use. Abdomen-normal bowel sounds and soft. No ascites noted. Non-tender. Extremities- no clubbing, cyanosis, or edema. Rheumatologic-normal range of motion. Psychiatric-normal affect. Principal Diagnosis AML Discharge Exam GENERAL: AAOx4, afebrile, NAD CV: irregular rhythm, no r/m/g PULM: CTA b/l, norml respiratory effort, no respiratory distress GI: soft, non distended, non tender EXTREMITIES: no swelling or calf tenderness bilaterally Discharge Data Allergies Allergy/AdvReac Type Severity Reaction Status Date / Time Penicillins Allergy Intermediate "i just Verified 09/08/24 09:38 didn't feel right" years ago Consultations 10/11/24 04:56 ED Decision to Admit Stat 10/11/24 05:27 Consult Hematology Stat Ordered Studies 10/12/24 13:30 IR bone marrow bx & asp Routine Hospital Course (1) Pancytopenia: (2) Hypomagnesemia: (3) Hyponatremia: (4) Elevated troponin: (5) (HFpEF) heart failure with preserved ejection fraction: (6) Renal insufficiency: (7) Pulmonary nodule: (8) AML (acute myeloblastic leukemia): Plan 84 y/o with a PMHx of HFpEF, a fib on Xarelto, HTN, CKD, and BPH presented with general malaise. Admitted for pancytopenia requiring blood transfusion and further work up. AML // Pancytopenia DDx broad - viral, tickborne, oncologic, blast crisis. BioFire negative. MRSA swab negative. RLL pulmonary nodule with increase in size. Clinical picture does not seem consistent with infectious process - higher concern for photolithographer process. Bone marrow biopsy unfortunately showing findings consistent with AML. Patient informed of this diagnosis and patient understandably upset. Time given to process this information and then given more time to answer his questions to the best of my ability. Discussed with Hematology/Oncology who is recommending [place] [facility] [place]. Patient agreeable to this, thus transfer was coordinated and finalized today. Elevated troponin Likely demand ischemia in the setting of anemia. Asymptomatic. Peaked at 79. HFpEF // Permanent Afib Advise continue home meds as BP tolerates. If patient requiring multiple PRBC or platelet units may need additional Lasix to avoid fluid overload. May continue Xarelto as well with dose adjusted for renal function. CKD3b Avoid nephrotoxins. Baseline ~1.2-1.4. Am labs with creatinine of ~1.6, which could be related to dehydration and/or anemia associated to his pancytopenia Pulmonary nodule CXR revealed right lower lung zone pulmonary nodule increased from 6 mm to 8.5 mm. Does have a smoking history. Rec eventually HRCT for further evaluation. Chronic: A-fibcontinue carvedilol, continue Xarelto HLDcontinue atorvastatin, holding aspirin BPHcontinue tamsulosin Total Time Total Time Spent Total Time Spent (In Minutes): Jair Wan DO, attending physician, spent 30 minutes myself seeing the patient, reviewing the chart, and documenting today. Discharge Plan Discharge Items Patient Disposition: Transfer Acute Care Hospital Reason For Visit: PANCYTOPENIA Discharge Diagnosis: AML Activity: Per Instructions section Non-emergency contact: Primary Care Provider and Oncologist Call non-emergency contact if: your symptoms worsen and your temperature is above 101.5 Follow-up/Referrals: Haja Torres MD [Primary Care Provider] - Diet: Heart Healthy and Low Sodium (2gm) Addtl Attending Provider Instructions: You were admitted to the hospital due to feeling unwell, and you were found to have low blood counts (immune cells, blood cells, platelets). After you underwent a bone marrow biopsy, it was found that the cause was something called Acute Myeloid Leukemia (AML), which is a form of leukemia (blood cancer). After finding this, we spoke with out photolithographer/oncologist and discussed options for next steps in your care, and they recommended we transfer you [facility] to begin your therapy there. Therefore, we will be transferring you today [place] [facility] [place] will begin what is called an induction treatment, which is the intensive first step that may last approximately a week and is ideally done in a hospital to monitor you closely while you are on it. Pending Studies at Discharge: No Stand-Alone Forms: My [facility] Skilled Items Patient informed of condition?: Yes DNR: No Discharge Level of Care: Other Communicable Disease: No Discharge Prognosis: Stable Lines: None Urinary Catheter: No Medications and DC Order Prescriptions: Continued atorvastatin 20 mg tablet 20 mg PO QPM Qty: 90 3RF Entresto 97-103 mg tablet 1 tab PO BID 90 Days Qty: 180 3RF tamsulosin 0.4 mg capsule 0.4 mg PO HS Qty: 90 3RF Xarelto 20 mg tablet 20 mg PO QPM Qty: 90 3RF potassium chloride 20 mEq tablet extended release 20 meq PO BID Qty: 180 3RF carvedilol 6.25 mg tablet 6.25 mg PO BID Qty: 180 3RF Rx Instructions: must administer with a meal/food aspirin [Aspir-Low] 81 mg tablet,delayed release (DR/EC) 81 mg PO WK Rx Instructions: Wednesdays furosemide 40 mg tablet 40 mg PO 4XWK Qty: 48 3RF Rx Instructions: Saturday//Saturday/Saturday, may also take in place of triamterene/HCTZ if your weight is equal to or greater than 163 lb. triamterene-hydrochlorothiazid 37.5-25 mg capsule 1 cap PO 3XWK Qty: 90 3RF Patient Comments: sat, sat , sat - morning Rx Instructions: Saturday/Saturday/Saturday multivitamin Tablet 1 tab PO QAM ascorbic acid (vitamin C) [Vitamin C] 1,000 mg Tablet 1 tab PO QAM B-complex with vitamin C [Super B Complex-Vitamin C] Tablet 1 tab PO QAM Slow-Mag 71.5 mg Tablet,Delayed Release (Dr/Ec) 71.5 mg PO BID glucosamine-chondroitin 167-133 mg Capsule 1 cap PO QAM cholecalciferol (vitamin D3) [Vitamin D3] 2,000 unit Tablet 2,000 unit PO QAM Discharge Orders: Discharge Order (Routine); Ordered 10/13/24 Ordered By: Ivette Santiago Admission Data Admit Date/Time: 10/11/24 05:27 Attending Provider: Jair Vallejo Admit Provider: Francisco Baez Primary Care Provider: Haja Torres Other Providers: Yvette Leigh; Ivette Santiago; Thuy Sears Supervising Physician Co-Signing Physician Notes Please see my attestation from the same date in daily progress note. Patient accepted in [place] [facility] [place] I had personally discussed the indications for transfer as well as the theoretical risks (accident in transfer, deterioration of condition in transfer). He voiced understanding and consented to transfer. Resident Activity Tracking Resident Involvement: Resident Care Provided Care Provided: Adult Hospital Medicine
[2024-10-13] MEDS ORDERED: RIVAROXABAN 15 MG TAB PO SCH (21:00)
[2024-10-15 15:47] LABS: Babesia microti DNA Not Detected (Not Detected)
[2024-10-17 15:27] LABS: CMV IgG Antibody <0.60 U/mL; CMV IgM Antibody <30.00 AU/mL; Parvovirus IgG 5.5 (<0.9); Parvovirus IgM 0.2 (<0.9)
== END 2024-10-13 17:45 | disposition short-term general hospital (02) | DRG 835 ==
LOC: SUATTDRO → ED 03:04 → SUATTDRO 05:27 → EDINP 05:27 → 2E 11:21
DX: Z85.828 Personal history of other malignant neoplasm of skin; E87.1 Hypo-osmolality and hyponatremia; N40.1 Benign prostatic hyperplasia with lower urinary tract symptoms; C92.00 Acute myeloblastic leukemia, not having achieved remission; E87.6 Hypokalemia; I48.91 Unspecified atrial fibrillation; Z79.01 Long term (current) use of anticoagulants; N18.32 Chronic kidney disease, stage 3b; Z79.899 Other long term (current) drug therapy; I13.0 Hypertensive heart and chronic kidney disease with heart failure and stage 1 through stage 4 chronic kidney disease, or unspecified chronic kidney disease; I50.32 Chronic diastolic (congestive) heart failure; E83.42 Hypomagnesemia; Z86.73 Personal history of transient ischemic attack (TIA), and cerebral infarction without residual deficits; N17.9 Acute kidney failure, unspecified; T50.5X5A Adverse effect of appetite depressants, initial encounter; Z87.891 Personal history of nicotine dependence; Z79.82 Long term (current) use of aspirin; I24.89 Other forms of acute ischemic heart disease; E78.5 Hyperlipidemia, unspecified; Z88.0 Allergy status to penicillin; R91.1 Solitary pulmonary nodule